=== PATIENT | female | born 1990 | race Caucasian/White ===

== ENCOUNTER → 2018-01-09 13:13 | Outpatient (CLI) | payer OTHER, MEDICAID, SELFPAY ==
--- NOTE | 2018-01-09 13:13 | DI.US.S_ITS ---
PROCEDURE: US PELVIC COMPLETE INDICATIONS: IUD PLACEMENT TECHNIQUE: Real-time scanning was performed of the pelvic organs, with image documentation. Additional endovaginal scanning was necessary due to incomplete visualization of the adnexal and endometrial structures by transabdominal scanning. COMPARISON: None. FINDINGS: Transabdominal scanning: Limited scanning through the kidneys shows no hydronephrosis. No pathologic free abdominal or pelvic fluid. Endovaginal scanning: Uterus: Uterus is normal in size at 10.0 x 4.4 x 5.6 cm. The endometrium measures 5.8 mm in combined thickness. Intrauterine device in expected position. Ovaries: Mildly thickwalled, irregular complex cyst involves the right ovary measuring 2.2 x 1.7 x 1.7 cm which contains fine low level internal echoes. IMPRESSION: 1. Intrauterine device in expected position. 2. Thick and irregular walled complex right ovarian cyst measuring up to 2.2 cm. Given the complexity, recommend short term follow pelvic ultrasound in 6-12 weeks to assess for resolution. Dictated by: Shekhar HERNANDEZ Interpreted: Olayinka Villaseñor MD on 01/09/2018 at 14:03 Approved by: Olayinka Villaseñor M.D. on 01/09/2018 at 14:42
== END ==
PROVIDERS: Visit Provider Obstetrics & Gynecology
DX: R10.9 Unspecified abdominal pain (principal); Z30.431 Encounter for routine checking of intrauterine contraceptive device; N83.201 Unspecified ovarian cyst, right side
CPT/HCPCS: 76830; 76856

== ENCOUNTER → 2019-02-14 11:26 | Outpatient (CLI) | payer OTHER, MEDICAID, SELFPAY ==
--- NOTE | 2019-02-14 11:29 | DI.RAD.S_ITS ---
PROCEDURE: XR FOOT LT MIN 3V INDICATIONS: Left foot pain x 3 weeks - no history of injury TECHNIQUE: 3 views of the foot were acquired. COMPARISON: None. FINDINGS: Bones: No fractures or dislocations. No suspicious bony lesions. Soft tissues: No tibiotalar joint effusion. Achilles tendon appears normal. IMPRESSION: No trauma found, source of pain without trauma is not identified. Dictated by: Manny Joe M.D. on 02/14/2019 at 17:39 Approved by: Manny Joe M.D. on 02/14/2019 at 17:40
== END ==
PROVIDERS: PCP Physician Assistant; Visit Provider Physician Assistant
DX: M79.672 Pain in left foot (principal)
CPT/HCPCS: 73630

== ENCOUNTER 2019-05-15 14:27 | Day surgery (SDC) | payer OTHER, MEDICAID, SELFPAY ==
[2019-05-11 14:06] VITALS: BMI 36.6
[2019-05-15] VITALS (9 sets, daily range): BP systolic 110–150; BP diastolic 59–82; PULSE 60–83; RESP 10–17; TEMP 36.3–37.1; O2SAT 95–99
--- NOTE | 2019-05-15 | PATH_ITS ---
[facility] Accession Number: [id number] . 01 Material submitted: . gallbladder - GALLBLADDER . 02 Diagnosis: Gallbladder, Cholecystectomy: Chronic cholecytitis, cholelithiasis, and cholesterolosis. One benign cystic duct lymph node (0/). MRV 05/17/2019 0949 Local . 02 Electronically signed: . Danay Sheth MD, Pathologist NPI- [id number] . 01 Gross description: . Received in formalin, labeled gallbladder, is an intact gallbladder (length-6.5 cm, diameter-2.5 cm) with castillo-pink smooth shiny serosa and a patent cystic duct. A lymph node (0.7 x 0.5 x 0.2 cm) is identified. The lumen contains green gelatinous bile and multiple green-yellow smooth friable calculi (6.2 x 2.5 x 1.2 cm in aggregate). The mucosa is green-troy smooth and flat. The wall is up to 0.1 cm thick. No nodules, masses or lesions are identified. Section code: (A1) cystic duct resection margin and two serial sections from the body; (A2) two longitudinal sections from the fundus; (A3) one intact lymph node. ([id number]) /MRV 05/16/2019 1053 Local . 02 Pathologist provided ICD-10: K80.60 . 02 CPT . 529974 Performed at: 01 [facility] [address] [id number] MD Gui Allen MD Phone: [phone] Performed at: 02 [facility] [address] [place], [place] [id number] Kulkarni MD Phone: [phone]
[2019-05-15] MEDS: LACTATED RINGERS 1,000 ML 100 ML IV (14:52)
--- NOTE | 2019-05-15 15:15 | PM.PREOP ---
Pre-operative Note Interval Note History & Physical reviewed/Exam performed by Physician: Yes Changes to H&P: No
--- NOTE | 2019-05-15 15:22 | SUR.OPER ---
Supine on padded OR bed, head on pillow, arms secured on padded arm boards at <90 degrees abduction, legs uncrossed, safety belt at thigh, tape over blanket over lower legs.
[2019-05-15] MEDS: CEFAZOLIN 2 GM/100 ML FROZ.PIGGY IV (15:55)
[2019-05-15] MEDS: BUPIVACAINE 0.5% (PF) VIAL 30 ML INJ (16:32)
--- NOTE | 2019-05-15 17:09 | PM.OP.1 ---
Operative Date/Time/Diagnoses Date of procedure: 05/15/19 Time of procedure: 17:09 Pre-op diagnosis: biliary colic Post-op diagnosis: same Procedure & Clinicians Procedure: Laparoscopic cholecystectomy Same procedure as scheduled: Yes Indications: 29-year-old female with biliary colic presents for elective cholecystectomy. Surgeon: Blayne Lloyd Click Yes if Unassisted: Yes Anesthesia Type: General Operative Notes Findings: Gallstones Specimen(s): other (Gallbladder) Estimated Blood Loss (mL): 15 Procedure in detail: The patient was brought to the operating room placed supine on the table. Bilateral lower extremity compression devices were applied. General anesthesia was induced and they were intubated with an endotracheal tube. They received 2g Ancef prior to skin incision. A time-out was performed to ensure the correct patient procedure necessary equipment within the operating room. They were then prepped and draped in the usual sterile fashion. Infraumbilical incision was made the umbilical stalk was grasped and elevated and the fascia was sharply incised. The abdomen was entered atraumatically. A 10 mm trocar was then placed into the abdomen. Pneumoperitoneum was established. The laparoscopic camera was inserted into the abdomen inspection was made that demonstrated no evidence of injury upon entry. We then placed our working ports the 1st 5 mm port high in the epigastrium and then 2 in the right upper quadrant. The gallbladder was grasped and retracted over the liver and grasped laterally by the fundus. The triangle of Calot was exposed. The triangle of calot was then skeletonized using hook electrocautery and demonstrated the cystic duct clearly entering the gallbladder the cystic artery and the liver and in the background. With the critical view of safety established the cystic duct was clipped twice proximally and once distally and then sharply divided and the cystic artery was taken in the same fashion. Next the gallbladder was removed from the liver bed using electro cautery. The liver bed was then inspected for hemostasis and this was achieved. The abdomen was irrigated with sterile saline and inspection was made that showed the clips in good position. The specimen was removed using Endo-Catch. The abdomen was desufflated. The the fascia of the umbilicus was closed with 0 Vicryl in a [id number] fashion. Skin incisions were irrigated and closed with 4-0 Monocryl. The wounds were sealed with Dermabond. Patient emerged from general anesthesia was extubated and transferred to the postoperative care unit missed stable condition. The sponge and instrument count at the end of the operation was correct. Complications: none Post-operative Condition: stable Disposition: same day surgery
[2019-05-15] MEDS: fentaNYL 100 MCG/2 ML INJ 50 MCG IV (17:28)
[2019-05-15] MEDS: OXYCODONE IR 5 MG TABLET PO (17:31)
== END 2019-05-15 18:23 | disposition home or self-care (01) ==
PROVIDERS: Family Provider Physician Assistant; PCP Physician Assistant; Visit Provider Surgery
PROC: 0FT44ZZ Resection of Gallbladder, Percutaneous Endoscopic Approach (ICD-10-PCS; CPT 47562; principal; 2019-05-15 15:45)
DX: K80.10 Calculus of gallbladder with chronic cholecystitis without obstruction (principal)
CPT/HCPCS: 47562; J0330; J0690; J1100; J1885; J2250; J2405; J2704; J3010

== ENCOUNTER → 2020-07-22 10:47 | Outpatient (CLI) | payer OTHER, MEDICAID, SELFPAY ==
[2020-07-22 11:31] LABS: Add Manual Diff / Slide Review NO; Basophils Absolute Auto 0 /uL (0-100); Basophils Percent Auto 0.5 % (0-2); Eosinophils Absolute Auto 100 /uL (0-450); Eosinophils Percent Auto 2.1 % (2-4); Hematocrit 42.6 % (36-46); Hemoglobin 14.3 g/dL (12.0-16.0); Lymphocytes Absolute Auto 1800 /uL (1100-4500); Mean Corpuscular HGB Conc 33.5 % (30-36); Mean Corpuscular Hemoglobin 30.9 PG (26-34); Mean Corpuscular Volume 92.2 fL (80-100); Monocytes Absolute Auto 500 /uL (0-900); Monocytes Percent Auto 7.5 % (3-14); Neutrophils Absolute Auto 3900 /uL (1500-7000); Neutrophils Percent Auto 61.9 % (50-75); Platelet Count 249 X10^3/uL (150-400); Red Blood Cell Count 4.62 X10^6/uL (4.0-5.2); Red Cell Distribution Width 12.6 % (11.6-14.8); White Blood Cell Count 6.3 X10^3/uL (4.5-11.0)
[2020-07-22 12:06] LABS: Alanine Aminotransferase 43 IU/L (<35); Albumin 4.3 g/dL (3.5-5.0); Albumin Globulin Ratio 1.4 (1.0-2.8); Alkaline Phosphatase 59 U/L (38-126); Aspartate Aminotransferase 32 IU/L (14-36); BUN Creatinine Ratio 15.6 (6-22); Bilirubin Total 0.3 mg/dL (0.2-1.3); Blood Urea Nitrogen 12 mg/dL (7-17); Calcium 9.3 mg/dL (8.4-10.2); Carbon Dioxide 28 mmol/L (22-32); Chloride 108 mmol/L (98-107); Estimated Glomerular Filt Rate > 60.0 mL/min (>60); Globulin 3.1 g/dL (1.7-4.1); Glucose 105 mg/dL (70-100); HEMOLYSIS < 15 (0-50); Potassium 4.2 mmol/L (3.4-5.1); Sodium 139 mmol/L (137-145); Total Protein 7.4 g/dL (6.3-8.2)
[2020-07-22 12:21] LABS: Free T3, Triiodothyronine Free 5.83 pg/mL (2.77-5.27); Free T4, Direct Thyroxine 0.99 ng/dL (0.78-2.19)
[2020-07-22 12:35] LABS: Thyroid Stimulating Hormone 0.892 uIU/mL (0.47-4.68)
== END ==
PROVIDERS: Family Provider Physician Assistant; PCP Nurse Practitioner; Referring Provider Nurse Practitioner; Visit Provider Nurse Practitioner
DX: Z00.00 Encounter for general adult medical examination without abnormal findings (principal); F32.9 Major depressive disorder, single episode, unspecified; F41.9 Anxiety disorder, unspecified
CPT/HCPCS: 36415; 80053; 84439; 84443; 84481; 85025

== ENCOUNTER → 2020-11-06 12:17 | Outpatient (CLI) | payer OTHER, MEDICAID, SELFPAY ==
--- NOTE | 2020-11-06 12:19 | DI.US.S_ITS ---
PROCEDURE: US ABDOMEN LIMITED INDICATIONS: abdominal mass at right of umbilicus TECHNIQUE: Real-time focused scanning was performed of the abdomen, with image documentation. COMPARISON: None. FINDINGS: At the right and left margins of the umbilicus there are discrete ovoid structures with an appearance consistent with lipoma, measuring 2.4 x 0.8 x 1.5 cm on the right and 2.4 x 1.4 x 1.4 cm on the left. IMPRESSION: Lipoma structures appear present on the right and left margins of the umbilicus. No bowel is seen. Continued clinical follow-up is recommended. No visceral herniation is seen. Dictated by: Manny Joe M.D. on 11/06/2020 at 13:21 Approved by: Manny Joe M.D. on 11/06/2020 at 13:22
== END ==
PROVIDERS: Family Provider Physician Assistant; PCP Nurse Practitioner; Referring Provider Nurse Practitioner; Visit Provider Nurse Practitioner
DX: D17.5 Benign lipomatous neoplasm of intra-abdominal organs (principal)
CPT/HCPCS: 76705

== ENCOUNTER → 2020-12-26 09:17 | Outpatient (CLI) | payer OTHER, MEDICAID, SELFPAY ==
[2020-12-26 10:22] LABS: COVID19 -Nasal RAPID Negative (Negative)
== END ==
PROVIDERS: Family Provider Physician Assistant; PCP Nurse Practitioner; Visit Provider Surgery
DX: Z20.822 Contact with and (suspected) exposure to COVID-19 (principal)
CPT/HCPCS: 87635; C9803

== ENCOUNTER 2020-12-29 06:34 | Day surgery (SDC) | payer OTHER, MEDICAID, SELFPAY ==
[2020-12-25 10:35] VITALS: BMI 38.0
[2020-12-29] VITALS (8 sets, daily range): BP systolic 107–137; BP diastolic 68–83; PULSE 70–110; RESP 13–21; TEMP 36.1–37.1; O2SAT 97–98; BMI 37.8
--- NOTE | 2020-12-29 | PATH_ITS ---
[facility] Accession Number: [id number] . 01 Material submitted: . hemorrhoids - HEMORRHOIDS . 01 Clinical history: . HEMORRHOIDECTOMY W/POSS INT LAT SPHINCTERECTOMY . 02 Diagnosis: Hemorrhoids, Biopsy: Consistent with hemorrhoidal tissue. Negative for dysplasia or malignancy. [facility] 12/31/2020 1339 Local . 02 Electronically signed: . Daysi Kulkarni MD, Pathologist NPI- [id number] . 01 Gross description: . The specimen is received in formalin, labeled hemorrhoids and consists of three troy to pink-purple mucosal tissue fragments ranging from 1.0-1.8 cm. The margins are inked blue. The specimen is entirely submitted. . A1-A3: tissue fragments, bisected. ([id number]) /MRV 12/30/2020 1414 Local . 02 Pathologist provided ICD-10: K64.9 . 02 CPT . 895549 Performed at: 01 [facility] [address], [place], [place] [id number] MD Gui Allen MD Phone: [phone] Performed at: 02 [facility] [address] [place], [place] [id number] MD Daysi Kulkarni MD Phone: [phone]
[2020-12-29] MEDS: LACTATED RINGERS 1,000 ML 100 ML IV (07:21)
--- NOTE | 2020-12-29 07:27 | PM.HP.1 ---
History of Present Illness History of Present Illness Date Patient Seen: 12/29/20 Time Patient Seen: 07:27 Chief complaint: HEMORRHOIDECTOMY W/POSS INT LAT SPHINCTERECTOMY Narrative: This is a 30-year-old woman who has had symptomatic hemorrhoids since giving 6 years ago. They intermittently cause her pain and they swell when she has any kind of upset stomach or change in her stools. She generally has very regular bowel movements, and does not have to sit on the toilet for more than 2 minutes to have a bowel movement. She denies any melena or hematochezia. She has difficulty keeping clean, and hemorrhoids cause her quite a bit of pain when they are swollen. She has not had any procedures done on them before. She was found to have posterior midline tenderness on rectal exam in the office, consistent with a possible fissure. She denies any new symptoms or concerns since her office visit. ROS: Positive for anxiety, depression. Thirteen system review is otherwise negative other than as mentioned below and in HPI. PE: GENERAL: Well groomed and cooperative. Appears stated age. Answers questions promptly and appropriately. Vital signs noted. HENT: Normocephalic, atraumatic. Hearing intact. EYES: Conjunctiva pink, sclera white, no periorbital swelling. CARDIOVASCULAR: Regular rate. No pedal edema. RESPIRATORY: Non-tachypneic, breathing comfortably on room air. GASTROINTESTINAL: Abdomen soft and non-distended GENITALURINARY: No flank tenderness. MUSCULOSKELETAL: Equal tone and mass bilaterally. SKIN: Warm, dry, soft, appropriate color for ethnicity. No other lesions, rashes, or wounds. NEURO: Alert and Oriented X 3. No gross sensory deficits, or cognitive issues. PSYCH: Appropriate affect and mood. Patient History Medical History Biliary colic Cellulitis Depression Dizziness E coli infection (1998) Elevated fasting glucose Elevated LFTs Epigastric pain Hemorrhoids Left foot pain Neuritis Otitis externa Psoriasis Right otitis media Skin mole Skin tags, multiple acquired Umbilical mass Surgical History History of laparoscopic cholecystectomy (05/15/19) Status post delivery (12/06/16) Status post repeat low transverse section Family & Social History Family History Mother Thyroid disorder Grandmother Thyroid disorder Grandmother Stroke Father Hypertension Social History: household members children,none Tobacco & Substance use: Smoking Status Never smoker alcohol intake current alcohol intake frequency holiday/special occasion Substance Use Type marijuana Meds Home Medications and Allergies Home Medications Medication Instructions Recorded Confirmed Type levonorgestrel 20 mcg/24 hours (6 1 device INTRAUTERINE CONT 09/12/19 12/25/20 History yrs) 52 mg intrauterine device Allergies Allergy/AdvReac Type Severity Reaction Status Date / Time citalopram AdvReac Intermediate Memory Verified 12/29/20 06:59 loss, hot flashes Exam Vital Signs (past 8 hours): - 12/29/20 07:00 Temperature 98.8 F Pulse Rate 78 Respiratory Rate 16 Blood Pressure 137/83 Pulse Oximetry 97 Oxygen Delivery Method Room Air Assessment & Plan Assessment and plan (1) Obesity (BMI 30.0-34.9): Status: Chronic (2) Hemorrhoids: Qualifiers: Hemorrhoid type: unspecified Qualified Code(s): K64.9 - Unspecified hemorrhoids Status: Acute (3) Anal pain: Status: Acute Assessment & Plan narrative: This is a 30-year-old woman with hemorrhoids and an anal fissure. Risks and benefits of hemorrhoidectomy and internal lateral sphincterotomy were discussed with the patient including risk of bleeding, infection, damage to nearby structures, anal leakage, anal stenosis, recurrence of hemorrhoids, recurrence of fissure, chronic pain, postoperative constipation, need for additional procedures. The patient desires to proceed with hemorrhoidectomy and internal lateral sphincterotomy. COVID-19 COVID-19 status: Negative Result date/Date tested (Pos, Neg/Pending): 12/26/20 Time Spent With Patient Time with patient: 15-24 minutes Quality VTE Deep Vein Thrombosis/Pulmonary Embolism Present on Admission: No
[2020-12-29] MEDS: metroNIDAZOLE 500 MG/100 ML PIGGYBACK 100 MG IV (07:50)
[2020-12-29] MEDS: CEFAZOLIN 1 GM VIAL 2 GM IV (08:00)
--- NOTE | 2020-12-29 08:12 | SUR.OPER ---
Prone on padded OR bed, head in foam head support, gel chest rolls, gel pad under knees, pillow x2 under lower legs, toes free of pressure, arms secured on padded arm boards at <90 degrees abduction. Safety belt at back.
[2020-12-29] MEDS: BUPIVACAINE 0.25% W/ EPI (PF) 10 ML VIAL 60 ML INJ (08:20)
[2020-12-29] MEDS: BUPIVACAINE LIPOSOME 266 MG/20 ML VIAL INJ (08:22)
[2020-12-29] MEDS: DIBUCAINE 1% OINT 28 GM 1 APPLIC TOP (08:23)
--- NOTE | 2020-12-29 09:11 | P.OP_ITS ---
Operative Date/Time/Diagnoses Date of procedure: 12/29/20 Time of procedure: 09:12 Pre-op diagnosis: hemorrhoids, posterior midline anal fissure Post-op diagnosis: same (Extensive circumferential hemorrhoids; posterior midline anal fissure) Procedure & Clinicians Procedure: Hemorrhoidectomy in suture ligation of left lateral and right anterior hemorrhoidal columns, suture ligation of pedicle of right posterior h emorrhoidal column Right Internal lateral sphincterotomy Same procedure as scheduled: Yes Indications: Circumferential hemorrhoids, posterior midline anal fissure Surgeon: Jazmin Castillo Click Yes if Unassisted: Yes Anesthesia Type: General Operative Notes Findings: Circumferential internal and external hemorrhoids, posterior midline fissure Specimen(s): other (hemorrhoids) Estimated Blood Loss (mL): 5 Procedure in detail: The patient was brought into the OR. Sequential compression devices were placed on both legs and turned on. Appropriate perioperative antibiotics were given. General anesthesia was induced and the patient was intubated. The patient was turned prone onto the OR table. All bony prominences were padded. The buttocks were taped apart. The perianal area was prepped and draped in sterile fashion with betadine prep. Surgical timeout was conducted. 0.25% Marcaine with epi was used to perform a four quadrant anal block using 5mL per quadrant for a total of 20mL. On external exam there were moderate external hemorrhoids seen and a chronic posterior midline fissure. With copious lubricant, an anorectal exam was performed. Large internal hemorrhoids were seen circumferentially. The left lateral internal hemorrhoid was grasped proximal to the dentate line and an 0 Vicryl suture was placed in the base of the hemorrhoidal vessel and secured. The hemorrhoid was divided using harmonic scalpel and dissected out including the involved vessel, excising the internal and external hemorrhoidal column. The hemorrhoidal tissue was excised with good hemostasis. The same was again performed at the right anterior hemorrhoidal column. The base of the right posterior hemorrhoidal column was sutured with 0 Vicryl without removing the hemorrhoidal column to reduce the risk of circumferential scarrinng and stenosis. Attention was then turned to the right lateral anoderm at the 3:00 position. A small skin incision was made overlying the anal sphincter muscle. The skin was opened and dissection was carried down to the anal sphincter using a mosquito cl amp. The internal sphincter was located and 3mm of muscle was divided using cautery, consistent with the length of the fissure. The anoderm was closed with deep 3-0 Vicryl suture. An additional 20 mL of 0.25% Marcaine with epi was used to inject circumferentially around the anal canal. 20mL of Exparel was used to inject the anoderm and anal canal circumferentially 2-3mL per cm. A large Gelfoam was then coated and rolled with Dibucaine and placed in the anal canal. A thick layer of Dibucaine was used to coat the anoderm. A stack of 4x4 gauze was then used to cover the anal opening and secured in place with medipore tape. The patient was transferred onto her hospital bed into supine position. She was then awakened from anesthesia and extubated. Needle, sponge, and instrument counts were correct x 2. The patient was transferred to the PACU in stable condition. Complications: none Post-operative Condition: stable Disposition: PACU
[2020-12-29] MEDS: OXYCODONE IR 5 MG TABLET PO (09:15)
--- NOTE | 2020-12-29 09:59 | SUR.PHASEII ---
Patient does not have a bath tub at home -- sitz bath given. patient denies having any questions, states that she has all of her belongings. Stable, pleasant, and appreciative.
== END 2020-12-29 09:59 | disposition home or self-care (01) ==
PROVIDERS: Family Provider Physician Assistant; PCP Nurse Practitioner; Referring Provider Nurse Practitioner; Visit Provider Surgery
PROC: (CPT 46260; principal; 2020-12-29 07:45)
DX: K64.8 Other hemorrhoids (principal); K60.1 Chronic anal fissure; K64.4 Residual hemorrhoidal skin tags; E66.9 Obesity, unspecified; Z68.37 Body mass index [BMI] 37.0-37.9, adult
CPT/HCPCS: 46260; 81025; C9290; J0330; J0690; J1100; J2250; J2405; J2704; J3010

== ENCOUNTER 2021-07-27 15:18 | Emergency (ER) | payer OTHER, MEDICAID, SELFPAY ==
[2021-07-27 15:34] VITALS: BP 138/100; PULSE 74; RESP 18; TEMP 37.1; O2SAT 97; BMI 42.4
== END 2021-07-27 17:19 | disposition left against medical advice (07) ==
PROVIDERS: Emergency Provider Emergency Medicine; Family Provider Physician Assistant; PCP Nurse Practitioner
DX: Z53.21 Procedure and treatment not carried out due to patient leaving prior to being seen by health care provider (principal)
CPT/HCPCS: 99281

== ENCOUNTER → 2022-04-08 08:05 | Outpatient (CLI) | payer OTHER, MEDICAID, SELFPAY ==
[2022-04-08 10:26] LABS: Add Manual Diff / Slide Review NO; Basophils Absolute Auto 100 /uL (0-100); Basophils Percent Auto 0.7 % (0-2); Eosinophils Absolute Auto 200 /uL (0-450); Eosinophils Percent Auto 2.7 % (2-4); Hematocrit 39.7 % (36-46); Hemoglobin 13.8 g/dL (12.0-16.0); Lymphocytes Absolute Auto 2200 /uL (1100-4500); Mean Corpuscular HGB Conc 34.8 % (30-36); Mean Corpuscular Hemoglobin 31.2 PG (26-34); Mean Corpuscular Volume 89.6 fL (80-100); Monocytes Absolute Auto 600 /uL (0-900); Monocytes Percent Auto 8.2 % (3-14); Neutrophils Absolute Auto 4700 /uL (1500-7000); Neutrophils Percent Auto 60.4 % (50-75); Platelet Count 271 X10^3/uL (150-400); Red Blood Cell Count 4.43 X10^6/uL (4.0-5.2); Red Cell Distribution Width 12.6 % (11.6-14.8); White Blood Cell Count 7.8 X10^3/uL (4.5-11.0)
[2022-04-08 11:20] LABS: Alanine Aminotransferase 22 IU/L (<35); Albumin Globulin Ratio 1.7 (1.0-2.8); Alkaline Phosphatase 68 U/L (38-126); Aspartate Aminotransferase 21 IU/L (14-36); BUN Creatinine Ratio 12.7 (6-22); Bilirubin Total 0.2 mg/dL (0.2-1.3); Blood Urea Nitrogen 9 mg/dL (7-17); Calcium 8.9 mg/dL (8.4-10.2); Carbon Dioxide 22 mmol/L (22-32); Chloride 104 mmol/L (98-107); Cholesterol 239 mg/dL (140-199); Estimated Glomerular Filt Rate > 60 mL/min (>60); Globulin 2.3 g/dL (1.7-4.1); Glucose 110 mg/dL (70-100); HDL Cholesterol 44 mg/dL (40-60); HEMOLYSIS < 15 (0-50); LDL Cholesterol Calculated 173 mg/dL (<100); Potassium 4.3 mmol/L (3.4-5.1); Total Protein 6.3 g/dL (6.3-8.2); Triglycerides 111 mg/dL (35-150)
[2022-04-08 11:27] LABS: Free T3, Triiodothyronine Free 3.71 pg/mL (2.77-5.27); Free T4, Direct Thyroxine 0.93 ng/dL (0.78-2.19)
[2022-04-08 11:30] LABS: Sodium 138 mmol/L (137-145)
[2022-04-08 11:41] LABS: Thyroid Stimulating Hormone 1.21 uIU/mL (0.47-4.68)
== END ==
PROVIDERS: Family Provider Physician Assistant; PCP Nurse Practitioner; Referring Provider Nurse Practitioner; Visit Provider Nurse Practitioner
DX: Z00.00 Encounter for general adult medical examination without abnormal findings (principal)
CPT/HCPCS: 36415; 80053; 80061; 84439; 84443; 84481; 85025

== ENCOUNTER → 2022-10-04 08:40 | Outpatient (CLI) | payer OTHER, MEDICAID, SELFPAY ==
--- NOTE | 2022-10-04 08:41 | DI.US.S_ITS ---
PROCEDURE: US PELVIC COMPLETE INDICATIONS: LEFT OVARIAN CYST/PAIN TECHNIQUE: Real-time transvaginal scanning was performed of the pelvic organs, with image documentation. COMPARISON: [facility], US, US PELVIC COMPLETE, 01/09/2018, 13:33. FINDINGS: Uterus: Uterus is anteverted and normal in size at 8.6 x 4.1 x 5.1 cm. The myometrium is homogeneous. The endometrium measures 3 mm combined thickness. Ovaries: The right ovary measures 3.4 x 2.4 x 2.6 cm, with a calculated ovarian volume of 11 cc. The left ovary measures 2.9 x 1.9 x 3.0 cm, with a calculated ovarian volume of 9 cc. Greater than 12 follicles can be seen in each ovary. No adnexal masses are seen. Blood flow present within both ovaries on Doppler imaging. Other: No pathologic free abdominal or pelvic fluid. IMPRESSION: Greater than 12 follicles visualized in each ovary, a finding that can be seen in the setting of polycystic ovarian morphology. We strive to produce accurate, complete, and clear reports of imaging services. To assist us in improving patient care, this report was composed using standard report templates and voice recognition software. Therefore, it may contain abnormal punctuation, insertions and/or omissions. Occasional wrong-word or sound-alike substitutions may occur. Though we review the report and make efforts to correct it, we do recommend that the report be read carefully in proper context to recognize any text inaccuracies. Dictated by: Tariq Navarrete M.D. on 10/04/2022 at 9:48 Approved by: Tariq Navarrete M.D. on 10/04/2022 at 9:57
== END ==
PROVIDERS: Family Provider Physician Assistant; PCP Nurse Practitioner; Referring Provider Obstetrics & Gynecology; Visit Provider Obstetrics & Gynecology
DX: N83.202 Unspecified ovarian cyst, left side (principal); R10.2 Pelvic and perineal pain
CPT/HCPCS: 76830; 76856; 93976

== ENCOUNTER 2024-02-14 06:00 | Day surgery (SDC) | payer BC, SELFPAY ==
[2024-02-08 13:46] VITALS: BMI 37.9
[2024-02-14 06:35] VITALS: BMI 37.9
[2024-02-14 06:38] VITALS: BP 124/83; PULSE 72; RESP 18; TEMP 36.6; O2SAT 96
[2024-02-14] MEDS: LACTATED RINGERS 1,000 ML 42 ML IV (06:47)
--- NOTE | 2024-02-14 07:42 | PM.HP.1 ---
History of Present Illness History of Present Illness Date Patient Seen: 02/14/24 Time Patient Seen: 07:42 Chief complaint: Open umbilical hernia repair w/mesh Narrative: Kaylie is a 33 year old woman with an umbilical hernia. See office note for details. [facility] Medical History Class 2 obesity due to excess calories with body mass index (BMI) of 39.0 to 39.9 in adult Difficulty concentrating Anal fissure Anal pain Elevated LFTs Elevated fasting glucose Dizziness Skin mole Skin tags, multiple acquired Umbilical mass Cellulitis Hemorrhoids Otitis externa Right otitis media Psoriasis Depression Biliary colic Neuritis Left foot pain Epigastric pain E coli infection (1998) Surgical History (Updated 02/08/24 @ 13:45 by Arlet Avendaño RN) Hx of hemorrhoidectomy (12/29/20) History of laparoscopic cholecystectomy (05/15/19) Status post delivery (12/06/16) Status post repeat low transverse section Family History Mother Thyroid disorder Grandmother Thyroid disorder Grandmother Stroke Father Hypertension Social History marital status: unknown household members: spouse and children occupational status: employed Smoking Status: Never smoker second hand exposure: No alcohol intake: current substance use type: does not use Meds Home Medications and Allergies Home Medications Medication Instructions Recorded Confirmed Type fluoxetine 20 mg capsule See Rx Instructions .Route 11/25/23 02/14/24 Rx .COMPLEX #90 caps methylphenidate HCl 36 mg 36 mg PO QAM #30 tabs 12/05/23 02/14/24 Rx tablet,extended release 24 hr Allergies Allergy/AdvReac Type Severity Reaction Status Date / Time citalopram AdvReac Intermediate Memory Verified 02/14/24 06:33 loss, hot flashes Exam Vital Signs (past 8 hours): - 02/14/24 06:38 Temperature 97.9 F Pulse Rate 72 Respiratory Rate 18 Blood Pressure 124/83 Pulse Oximetry 96 Oxygen Delivery Method Room Air Oxygen Delivery Method Room Air Const General: No acute distress Resp Effort & Inspection: normal respiratory effort Assessment & Plan Assessment and plan (1) Umbilical hernia: Qualifiers: Obstruction and gangrene presence: without obstruction or gangrene Qualified Code(s): K42.9 - Umbilical hernia without obstruction or gangrene Status: Acute Plan Proceed with umbilical hernia repair with mesh Time-Based Coding :: [TOTAL MINUTES] spent with patient and on the chart (including review of chart, obtaining history, exam, reviewing outside data, placing orders, documenting exam and treatment plan, and counseling patient) on [DATE].
[2024-02-14] MEDS: CEFAZOLIN 2 GM/100 ML PREMIX 100 ML IV (07:55)
--- NOTE | 2024-02-14 08:02 | SUR.OPER ---
Supine on padded OR bed, head on pillow, arms secured on padded arm boards at <90 degrees abduction, legs uncrossed, safety belt at thigh, tape over blanket over lower legs.
[2024-02-14] MEDS: BUPIVACAINE 0.5% (PF) 30 ML, EPINEPHrine 0.15 MG INJ (08:07)
--- NOTE | 2024-02-14 08:34 | PM.OP.1 ---
Operative Date/Time/Diagnoses Date of procedure: 02/14/24 Time of procedure: 08:34 Pre-op diagnosis: Umbilical hernia Post-op diagnosis: same Procedure & Clinicians Procedure: Open umbilical hernia repair with mesh Same procedure as scheduled: Yes Surgeon: Trenton Torres [employer] Commissioner: Eugene Henson Anesthesia Type: General Operative Notes Procedure in detail: Ancef was administered. The patient was brought to the operating room, placed on the table in the supine position and general endotracheal anesthesia was induced. The abdomen was prepped and draped in the usual fashion. A time-out was performed. A 6 cm curvilinear incision was made inferior to the umbilicus. Dissection around the base of the umbilical stalk allowed Peon clamp to be inserted around the stalk and the stalk was divided. The hernia sac was dissected free from the surrounding subcutaneous adipose tissue. The sac was dissected off the umbilical stalk using a combination of cautery, sharp and blunt dissection. The hernia sac was dissected free from the dermis and amputated. There was some visceral fat in the hernia that was amputated and discarded. The fascia was then closed transversely with four interrupted 0 Ethibond sutures. The subcutaneous adipose tissue was cleared off of the anterior sheath circumferentially about 2 cm in each direction. A piece of polypropylene mesh was trimmed to fit over the fascial closure and secured with Tisseel. Once the Tisseel was dried the umbilical skin was tacked down to the deep adipose tissue with a single 3-0 Vicryl stitch. The skin was closed with multiple interrupted 3-0 Vicryl dermal sutures followed by a running 4 Monocryl subcuticular closure. Steri-Strips were applied and an abdominal binder was applied. EBL: 5 mL Eugene SIMON provided assistance with exposure, retraction and closure of incisions. Post-operative Condition: stable Disposition: PACU
[2024-02-14 08:40] VITALS: BP 115/79; PULSE 81; RESP 14; TEMP 36.4; O2SAT 98
[2024-02-14 08:44] VITALS: BP 118/87; PULSE 80; RESP 17; O2SAT 98
[2024-02-14 08:49] VITALS: BP 116/71; PULSE 68; RESP 14; O2SAT 97
[2024-02-14] MEDS: OXYCODONE IR 5 MG TABLET PO (08:57)
[2024-02-14] MEDS: ONDANSETRON 4 MG/2 ML INJ IV (08:57)
[2024-02-14 09:00] VITALS: BP 119/77; PULSE 58; RESP 22; O2SAT 94
[2024-02-14 09:06] VITALS: BP 136/71; PULSE 72; RESP 12; O2SAT 98
== END 2024-02-14 09:59 | disposition home or self-care (01) ==
PROVIDERS: Family Provider Physician Assistant; PCP Nurse Practitioner; Referring Provider Surgery; Visit Provider Surgery
PROC: (CPT 49591; principal; 2024-02-14 07:45)
DX: K42.9 Umbilical hernia without obstruction or gangrene (principal)
CPT/HCPCS: 49591; 81025; J0171; J0690; J1100; J1885; J2250; J2405; J2704; J3010

== ENCOUNTER 2024-05-28 14:24 | Emergency (ER) | payer BC, SELFPAY ==
[2024-05-28 14:41] VITALS: BP 139/86; PULSE 116; RESP 16; TEMP 37.1; O2SAT 98; BMI 36.0
[2024-05-28 16:32] LABS: Add Manual Diff / Slide Review NO; Basophils Absolute Auto 0 /uL (0-100); Basophils Percent Auto 0.5 % (0-2); Eosinophils Absolute Auto 100 /uL (0-450); Eosinophils Percent Auto 0.8 % (2-4); Hematocrit 40.8 % (36-46); Hemoglobin 14.1 g/dL (12.0-16.0); Lymphocytes Absolute Auto 1800 /uL (1100-4500); Lymphocytes Percent Auto 19.1 % (25-40); Mean Corpuscular HGB Conc 34.5 % (30-36); Mean Corpuscular Hemoglobin 31.8 PG (26-34); Mean Corpuscular Volume 92.2 fL (80-100); Monocytes Absolute Auto 600 /uL (0-900); Monocytes Percent Auto 6.5 % (3-14); Neutrophils Absolute Auto 6900 /uL (1500-7000); Neutrophils Percent Auto 73.1 % (50-75); Platelet Count 280 X10^3/uL (150-400); Red Blood Cell Count 4.42 X10^6/uL (4.0-5.2); Red Cell Distribution Width 12.7 % (11.6-14.8); White Blood Cell Count 9.4 X10^3/uL (4.5-11.0)
[2024-05-28 16:39] LABS: Prothrombin Time 11.4 SECONDS (9.4-12.5)
[2024-05-28 16:42] LABS: PTT Partial Thromboplastin Tim 38 SECONDS (25.1-36.5)
[2024-05-28 16:58] LABS: Alanine Aminotransferase 22 IU/L (<35); Albumin 4.7 g/dL (3.5-5.0); Albumin Globulin Ratio 1.6 (1.0-2.8); Alkaline Phosphatase 62 U/L (38-126); Aspartate Aminotransferase 26 IU/L (14-36); BUN Creatinine Ratio 16.9 (6-22); Bilirubin Total 0.4 mg/dL (0.2-1.3); Blood Urea Nitrogen 14 mg/dL (7-17); Calcium 9.8 mg/dL (8.4-10.2); Carbon Dioxide 25 mmol/L (22-32); Chloride 103 mmol/L (98-107); Estimated Glomerular Filt Rate > 60 mL/min (>60); Globulin 2.9 g/dL (1.7-4.1); Glucose 93 mg/dL (70-100); HEMOLYSIS < 15 (0-50); Potassium 4.1 mmol/L (3.4-5.1); Sodium 135 mmol/L (137-145); Total Protein 7.6 g/dL (6.3-8.2)
[2024-05-28 18:16] VITALS: BP 144/94; PULSE 87; O2SAT 97
[2024-05-28 18:30] VITALS: BP 126/79; PULSE 74; O2SAT 97
--- NOTE | 2024-05-28 18:38 | ED_ITS ---
HPI - GI Bleed General Chief complaint: GI Bleed Stated complaint: bloody stool w/ red blood clots Time Seen by Provider: 05/28/24 18:10 Source: patient Mode of arrival: Family Vehicle History of Present Illness HPI Narrative: Patient is a 34-year-old female who is here for evaluation of several weeks of bright red blood per rectum. No recent travel. No recent antibiotics. No vomiting. Not on blood thinners. She was not having issues with constipation or diarrhea. No urinary symptoms. She has had a hemorrhoidectomy in the past. Reports no discomfort with bowel movements or urinating. No lightheadedness or shortness of breath with exertion. She stated that she tried to contact her primary doctor's office for a appointment however was directed to come to the emergency department for further evaluation. Related Data Previous Rx's Medication Instructions Recorded fluoxetine 20 mg capsule See Rx Instructions .Route 02/29/24 .COMPLEX #90 caps vitamins with calcium 1 tab PO DAILY #90 tabs 02/29/24 no.72-iron 29 mg-folic acid 1 mg tablet methylphenidate HCl 36 mg 36 mg PO QAM #30 tabs 04/05/24 tablet,extended release 24 hr Allergies Allergy/AdvReac Type Severity Reaction Status Date / Time citalopram AdvReac Intermediate Memory Verified 02/27/24 09:41 loss, hot flashes Review of Systems Review of Systems ROS Unobtainable: All systems reviewed & are unremarkable except as noted in HPI and below Patient History Medical History Class 2 obesity due to excess calories with body mass index (BMI) of 39.0 to 39.9 in adult Difficulty concentrating Anal fissure Anal pain Elevated LFTs Elevated fasting glucose Dizziness Skin mole Skin tags, multiple acquired Umbilical mass Cellulitis Hemorrhoids Otitis externa Right otitis media Psoriasis Depression Biliary colic Neuritis Left foot pain Epigastric pain E coli infection (1998) Surgical History (Updated 02/29/24 @ 09:25 by CHI Sosa) History of hernia repair Hx of hemorrhoidectomy (12/29/20) History of laparoscopic cholecystectomy (05/15/19) Status post delivery (12/06/16) Status post repeat low transverse section Family History Mother Thyroid disorder Grandmother Thyroid disorder Grandmother Stroke Father Hypertension Social History marital status: unknown household members: spouse and children occupational status: employed Smoking Status: Never smoker second hand exposure: No alcohol intake: current substance use type: does not use Smoking Status: Never smoker alcohol intake frequency: a few times a month Substance Use Type: marijuana Exam Initial Vital Signs Initial Vital Signs: Vital Signs Temperature 98.8 F 05/28/24 14:41 Pulse Rate 116 H 05/28/24 14:41 Respiratory Rate 16 05/28/24 14:41 Blood Pressure 139/86 05/28/24 14:41 Pulse Oximetry 98 05/28/24 14:41 Oxygen Delivery Method Room Air 05/28/24 14:41 Const General: cooperative, comfortable and No ill appearing HENMT Head: normal to inspection and normocephalic Resp Effort & Inspection: normal respiratory effort Cardio Rate: regular rate GI Inspection: non-distended Skin General: no rashes or lesions noted Neuro General: patient alert, patient awake and moves all extremities Course Orders Ordered: ED Orders 05/28/24 16:20 Complete Blood Count AUTO DIFF Stat Comprehensive Metabolic Panel Stat PTT Partial Thromboplastin Rene Stat Prothrombin Time INR Stat 05/28/24 19:18 Hemoglobin and Hematocrit Stat Discontinued Medications Ondansetron HCl (Ondansetron 4 Mg/2 Ml Inj) 4 mg IV NOW PRN PRN Reason: Nausea And Vomiting Ondansetron HCl (Ondansetron 4 Mg Odt) 4 mg SL NOW PRN PRN Reason: Nausea And Vomiting Pantoprazole Sodium (Pantoprazole 40 Mg Vial) 80 mg IV NOW ONE Stop: 05/28/24 15:01 Last Admin: 05/28/24 18:32 Dose: Not Given Documented By: ES Vital Signs Vital signs: Vital Signs - 8 hr 05/28/24 18:16 05/28/24 18:16 05/28/24 18:30 Pulse Rate 87 Respiratory Rate Blood Pressure 144/94 H 126/79 Pulse Oximetry 97 Oxygen Delivery Method 05/28/24 18:30 05/28/24 19:00 05/28/24 19:00 Pulse Rate 74 79 Respiratory Rate Blood Pressure 128/85 Pulse Oximetry 97 97 Oxygen Delivery Method 05/28/24 19:30 05/28/24 19:30 Pulse Rate 77 Respiratory Rate 18 Blood Pressure 129/87 Pulse Oximetry 98 Oxygen Delivery Method Room Air MDM - GI Bleed Lab Data Attestation: I reviewed the patient's lab results. 05/28/24 19:18 05/28/24 16:20 Labs: Lab Results 05/28/24 05/28/24 05/28/24 Range/Units 16:20 19:18 Unknown WBC 9.4 (4.5-11.0) X10^3/uL RBC 4.42 (4.0-5.2) X10^6/uL Hgb 14.1 13.3 (12.0-16.0) g/dL Hct 40.8 39.0 (36-46) % MCV 92.2 (80-100) fL MCH 31.8 (26-34) PG MCHC 34.5 (30-36) % RDW 12.7 (11.6-14.8) % Plt Count 280 (150-400) X10^3/uL Neut % (Auto) 73.1 (50-75) % Lymph % (Auto) 19.1 L (25-40) % Emanuel % (Auto) 6.5 (3-14) % Eos % (Auto) 0.8 L (2-4) % Baso % (Auto) 0.5 (0-2) % Neut # (Auto) 6900 (7941-5500) /uL Lymph # (Auto) 1800 (3638-1892) /uL Emanuel # (Auto) 600 (0-900) /uL Eos # (Auto) 100 (0-450) /uL Baso # (Auto) 0 (0-100) /uL PT 11.4 (9.4-12.5) SECONDS INR 1.0 (0.9-1.3) APTT 38 H (25.1-36.5) SECONDS Sodium 135 L (137-145) mmol/L Potassium 4.1 (3.4-5.1) mmol/L Chloride 103 (98-107) mmol/L Carbon Dioxide 25 (22-32) mmol/L BUN 14 (7-17) mg/dL Creatinine 0.83 (0.52-1.04) mg/dL Estimated GFR > 60 (>60) mL/min BUN/Creatinine Ratio 16.9 (6-22) Glucose 93 (70-100) mg/dL Calcium 9.8 (8.4-10.2) mg/dL Total Bilirubin 0.4 (0.2-1.3) mg/dL AST 26 (14-36) IU/L ALT 22 (<35) IU/L Alkaline Phosphatase 62 (38-126) U/L Total Protein 7.6 (6.3-8.2) g/dL Albumin 4.7 (3.5-5.0) g/dL Globulin 2.9 (1.7-4.1) g/dL Albumin/Globulin Ratio 1.6 (1.0-2.8) Blood Type Cancelled Antibody Screen Cancelled Point of Care Testing Test Results Negative Urine Dip Bedside Urine Glucose Negative Bedside Urine Bilirubin - Negative Bedside Urine Ketone - Negative Urine Specific Barney 1.015 Bedside Urine Occult Blood - Negative Bedside Urine pH 6.0 Bedside Urine Protein - Negative Bedside Urine Urobilinogen - Negative Bedside Urine Nitrite - Negative Bedside Urine Leukocytes - Negative Esterase MDM Narrative Medical decision making narrative: Patient has had symptoms for the past several weeks. She was not tachycardic. Not hypotensive. H&H is unchanged here in the ER. Has a benign exam. Recommended that she contact her primary doctor for a follow-up. Also recommend that she talk to her primary doctor about a referral to go see general surgery to discuss potential further testing. She was given return precautions and follow-up instructions. She expressed understanding and agreement with plan. Discharge Plan Departure Patient Disposition: Home Clinical Impression: Painless rectal bleeding Instructions: Gastrointestinal Bleeding Activity Restrictions/Additional Instructions: Continue to take all of your medications as directed. Tomorrow contact your primary care doctor for a follow-up. You were going to need follow-up with general surgery to discuss further evaluation. Return to the emergency department for new symptoms. Prescriptions: No Action methylphenidate HCl 36 mg tablet extended release 24hr 36 mg PO QAM Qty: 30 0RF fluoxetine 20 mg capsule See Rx Instructions .ROUTE .COMPLEX Qty: 90 3RF Dose Instruction: TAKE ONE CAPSULE BY MOUTH EVERY MORNING Rx Instructions: TAKE ONE CAPSULE BY MOUTH EVERY MORNING PNV,calcium 72-iron,carb-folic 29 mg iron- 1 mg tablet 1 tab PO DAILY Qty: 90 3RF Rx Instructions: Take 1 tab by mouth daily for desired Referrals: Maggie Lara ARNP [Primary Care Provider] - Trenton Torres MD [Physician] - Stand Alone Forms: Patient Portal/API/Survey
[2024-05-28 19:00] VITALS: BP 128/85; PULSE 79; O2SAT 97
[2024-05-28 19:23] LABS: Hemoglobin 13.3 g/dL (12.0-16.0)
[2024-05-28 19:30] VITALS: BP 129/87; PULSE 77; RESP 18; O2SAT 98
== END 2024-05-28 19:37 | disposition home or self-care (01) ==
PROVIDERS: Emergency Medicine; Emergency Provider Emergency Medicine; Family Provider Physician Assistant; PCP Nurse Practitioner
DX: K62.5 Hemorrhage of anus and rectum (principal)
CPT/HCPCS: 36415; 80053; 81003; 81025; 85014; 85018; 85025; 85610; 85730; 99283; 99284

== ENCOUNTER → 2024-07-30 09:11 | Outpatient (CLI) | payer BC, SELFPAY ==
[2024-07-30 10:28] LABS: Add Manual Diff / Slide Review NO; Basophils Absolute Auto 100 /uL (0-100); Basophils Percent Auto 0.7 % (0-2); Eosinophils Absolute Auto 200 /uL (0-450); Eosinophils Percent Auto 3.1 % (2-4); Hematocrit 40.6 % (36-46); Hemoglobin 13.8 g/dL (12.0-16.0); Lymphocytes Absolute Auto 1700 /uL (1100-4500); Lymphocytes Percent Auto 22.2 % (25-40); Mean Corpuscular Hemoglobin 31.2 PG (26-34); Mean Corpuscular Volume 91.9 fL (80-100); Monocytes Absolute Auto 500 /uL (0-900); Monocytes Percent Auto 6.2 % (3-14); Neutrophils Absolute Auto 5200 /uL (1500-7000); Neutrophils Percent Auto 67.8 % (50-75); Platelet Count 272 X10^3/uL (150-400); Red Blood Cell Count 4.42 X10^6/uL (4.0-5.2); Red Cell Distribution Width 12.4 % (11.6-14.8); White Blood Cell Count 7.6 X10^3/uL (4.5-11.0)
[2024-07-30 10:48] LABS: Alanine Aminotransferase 21 IU/L (<35); Albumin 4.1 g/dL (3.5-5.0); Albumin Globulin Ratio 1.7 (1.0-2.8); Alkaline Phosphatase 58 U/L (38-126); Aspartate Aminotransferase 25 IU/L (14-36); BUN Creatinine Ratio 17.4 (6-22); Bilirubin Total 0.3 mg/dL (0.2-1.3); Blood Urea Nitrogen 15 mg/dL (7-17); Calcium 9.2 mg/dL (8.4-10.2); Carbon Dioxide 24 mmol/L (22-32); Chloride 107 mmol/L (98-107); Cholesterol 246 mg/dL (140-199); Estimated Glomerular Filt Rate > 60 mL/min (>60); Globulin 2.4 g/dL (1.7-4.1); Glucose 95 mg/dL (70-100); HDL Cholesterol 49 mg/dL (40-60); HEMOLYSIS < 15 (0-50); LDL Cholesterol Calculated 174 mg/dL (<100); Potassium 4.4 mmol/L (3.4-5.1); Sodium 137 mmol/L (137-145); Total Protein 6.5 g/dL (6.3-8.2); Triglycerides 117 mg/dL (35-150)
[2024-07-30 11:00] LABS: Creatinine Urine Random 111.71 mg/dL
[2024-07-30 11:04] LABS: Free T3, Triiodothyronine Free 3.93 pg/mL (2.77-5.27); Free T4, Direct Thyroxine 0.98 ng/dL (0.78-2.19)
[2024-07-30 11:06] LABS: Microalbumin Urine Random 1.3 mg/dL (0-1.6)
[2024-07-30 11:17] LABS: Thyroid Stimulating Hormone 0.983 uIU/mL (0.47-4.68)
== END ==
LOC: LAB 09:12
PROVIDERS: Family Provider Physician Assistant; PCP Family Medicine; Referring Provider Family Medicine; Visit Provider Family Medicine
DX: Z00.00 Encounter for general adult medical examination without abnormal findings (principal); N83.209 Unspecified ovarian cyst, unspecified side
CPT/HCPCS: 36415; 80053; 80061; 82043; 82570; 84402; 84403; 84439; 84443; 84481; 85025

== ENCOUNTER → 2024-10-29 13:42 | Outpatient (CLI) | payer BC, SELFPAY ==
[2024-10-29 14:24] LABS: Add Manual Diff / Slide Review NO; Basophils Absolute Auto 0 /uL (0-100); Basophils Percent Auto 0.4 % (0-2); Eosinophils Absolute Auto 200 /uL (0-450); Eosinophils Percent Auto 1.5 % (2-4); Hematocrit 41.4 % (36-46); Hemoglobin 14.1 g/dL (12.0-16.0); Lymphocytes Absolute Auto 1900 /uL (1100-4500); Mean Corpuscular HGB Conc 34.1 % (30-36); Mean Corpuscular Hemoglobin 31.3 PG (26-34); Mean Corpuscular Volume 91.7 fL (80-100); Monocytes Absolute Auto 500 /uL (0-900); Monocytes Percent Auto 4.4 % (3-14); Neutrophils Absolute Auto 8400 /uL (1500-7000); Neutrophils Percent Auto 76.7 % (50-75); Platelet Count 254 X10^3/uL (150-400); Red Blood Cell Count 4.51 X10^6/uL (4.0-5.2)
[2024-10-29 14:46] LABS: Natera Collection Specimen Collected
[2024-10-30 08:12] LABS: Varicella IgG Antibody Reactive (Non Reactive)
[2024-10-30 16:33] LABS: Hepatitis B Surface Antigen NEGATIVE s/c (NEGATIVE); Rubella Antibody IgG 9.3 IU/mL (>15)
[2024-10-30 16:50] LABS: HIV 1 & 2 Ab/Ag 4th Gen Combo NEGATIVE (NEGATIVE); Hep C Virus Ab w/Reflex Quant NEGATIVE s/c (NEGATIVE)
[2024-10-31 02:38] LABS: RPR Screen Non Reactive (Non Reactive)
== END ==
PROVIDERS: Family Provider Physician Assistant; PCP Family Medicine; Referring Provider Obstetrics & Gynecology; Visit Provider Obstetrics & Gynecology
DX: Z34.81 Encounter for supervision of other normal pregnancy, first trimester (principal); E28.2 Polycystic ovarian syndrome; E66.9 Obesity, unspecified; Z3A.10 10 weeks gestation of pregnancy
CPT/HCPCS: 36415; 80055; 83036; 86787; 86803; 86850; 86900; 86901; 87086; 87389

== ENCOUNTER → 2024-12-07 09:31 | Outpatient (CLI) | payer SELFPAY | LOC: LAB 09:33 | PROVIDERS: Family Provider Physician Assistant; PCP Family Medicine; Visit Provider Obstetrics & Gynecology | DX: N39.0 Urinary tract infection, site not specified (principal) | CPT/HCPCS: 87086 ==

== ENCOUNTER → 2025-01-04 14:35 | Outpatient (CLI) | payer OTHER, SELFPAY ==
--- NOTE | 2025-01-04 14:36 | DI.US.S_ITS ---
PROCEDURE: US OB >= 14 WEEKS FETUS INDICATIONS: 20 week anatomy scan OUTSIDE/PRIOR DATING DATA: The calculations are made using the working MONTSERRAT of 05/23/2025 TECHNIQUE: Real-time scanning was performed of the fetus, with image documentation and biometric measurements. Endovaginal scanning: Not performed COMPARISON: None. FINDINGS: General: A single living intrauterine gestation is present. Presentation: Vertex. Placenta: Placental position is posterior, without previa. Amniotic fluid index: 11 cm, normal range is 5-24 cm. Single deepest vertical pocket is 2.9 cm. heart rate: 153 beats per minute. Maternal cervical canal: Closed and measures 3.9 cm long. Normal lower limit is 2.5 cm. biometrics: Biparietal diameter: 4.8 cm, 20 weeks, 3 days. Head circumference: 17.5 cm, 20 weeks, 0 day. Abdominal circumference: 13.8 cm, 19 weeks, 1 day. Femur length: 3.1 cm, 19 weeks, 5 days. Clinically estimated gestational age: 20 weeks, 1 day Composite gestational age from present scan: 19 weeks, 6 days Estimated weight and percentile: 297 g, 16%. Anatomic survey: Neuro: Ventricles are non-dilated at less than 10 mm. Cisterna magna is normal at 3-11 mm. Cerebellum is normal in size and morphology. Nuchal skin fold: Normal at less than 6 mm between 14-21 weeks gestational age. Face: Nose and lips, facial profile are normal. Spine: No evidence for spina bifida. Heart: 4-chambered heart is present, with normal ventricular outflow tracts. Diaphragm: Diaphragm is intact. Stomach: Left-sided stomach is present. Kidneys: Mild pelviectasis is seen in bilateral kidneys. Normal is less than 5 mm in 2nd trimester, less than 7 mm in 3rd trimester. Cord: 3-vessel cord has orthotopic insertion. Bladder: Normal in size. Extremities: All 4 extremities identified. IMPRESSION: 1. Single live intrauterine gestation with fetus in vertex presentation. heart rate is 153 beats per minute. Normal MARIPOSA at 11 cm. Normal growth with estimated weight at 16%. 2. Mild bilateral renal pelviectasis. 3. Rest of the anatomic survey is normal. We strive to produce accurate, complete, and clear reports of imaging services. To assist us in improving patient care, this report was composed using standard report templates and voice recognition software. Therefore, it may contain abnormal punctuation, insertions and/or omissions. Occasional wrong-word or sound-alike substitutions may occur. Though we review the report and make efforts to correct it, we do recommend that the report be read carefully in proper context to recognize any text inaccuracies. Dictated by: Te Scott M.D. on 01/06/2025 at 22:30 Approved by: Te Scott M.D. on 01/06/2025 at 22:33
== END ==
LOC: US 14:36
PROVIDERS: Family Provider Physician Assistant; PCP Family Medicine; Referring Provider Family Medicine; Visit Provider Obstetrics & Gynecology
DX: Z34.92 Encounter for supervision of normal pregnancy, unspecified, second trimester (principal); Z3A.20 20 weeks gestation of pregnancy
CPT/HCPCS: 76811

== ENCOUNTER 2025-02-22 01:08 | Observation (INO) | payer OTHER, SELFPAY ==
[2025-02-22 03:29] LABS: Appearance Urine UA CLEAR; Bilirubin Urine UA NEGATIVE (NEGATIVE); Color Urine UA YELLOW; Glucose Urine UA NEGATIVE (Negative); Ketones Urine UA NEGATIVE (NEGATIVE); Leukocyte Esterase Urine UA NEGATIVE (NEGATIVE); Nitrite Urine UA NEGATIVE (Negative); Occult Blood Urine UA NEGATIVE (Negative); Protein Urine UA NEGATIVE (Negative); Specific Gravity Urine UA 1.010 (1.000-1.035); Urobilinogen Urine UA 0.2 E.U./dL (0.2)
[2025-02-22 03:30] LABS: pH Urine UA 6.5 (4.5-8.0)
[2025-02-22 03:36] LABS: Culture Indicated Urine Cult Not Indicated
--- NOTE | 2025-02-22 08:30 | PM.OBTRLD ---
Visit Information Visit Information Date of evaluation: 02/22/25 Primary OB Provider: Myrna Aguirre On-call OB Provider: Soanm Hernandez Reason for Evaluation: Yes pre-term labor Comments/Additional reasons for admission: This is a 34 yo at 27w0d here with contractions. She reports they started at 8pm on 02/21, woke her up from sleep and occured every few minutes. No LOF. Good movement. [facility] Medical History (Updated 02/10/25 @ 23:25 by Myrna Aguirre MD) Class 2 obesity due to excess calories with body mass index (BMI) of 39.0 to 39.9 in adult Difficulty concentrating Anal fissure Anal pain Elevated LFTs Elevated fasting glucose Dizziness Skin mole Skin tags, multiple acquired Umbilical mass Cellulitis Hemorrhoids Otitis externa Right otitis media Psoriasis Depression Biliary colic Neuritis Left foot pain Epigastric pain E coli infection (1998) Surgical History (Updated 10/13/24 @ 14:35 by Myrna Aguirre MD) History of section (12/06/16) [place] teeth removed History of hernia repair Hx of hemorrhoidectomy (12/29/20) History of laparoscopic cholecystectomy (05/15/19) Status post delivery (12/06/16) Status post repeat low transverse section Family History Mother Thyroid disorder Grandmother Thyroid disorder Grandmother Stroke Father Hypertension Social History (Updated 09/24/24 @ 10:04 by Kacey Gan RN) marital status: number of children: 2 household members: spouse and children lives independently: Yes caregiver/support person: No housing: house pets and animals: Yes (dogs, rabbits) education level: college (some college) 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) current occupational exposures/hazards: No special jose needs: No travel history: recent (Domestic only) seatbelt use: always helmet use: Yes water heater temp set < 120 deg: Yes working smoke detector in home: Yes fire extinguisher in home: Yes carbon monox detector in home: Yes firearms in home: Yes firearms unloaded and locked: Yes do you feel safe at home: Yes second hand exposure: No alcohol intake: never substance use type: does not use and marijuana (small amounts of edibles for migraines, not while /) during the past year weight has: remained stable well-balanced diet: daily or most days daily servings fruits/ve-4 caffeine: Yes (single cup coffee in AM) eating out: rarely or never Type(s) of exercise: occasional exercise Objective Labs Labs: Laboratory Results - last 24 hr 02/22/25 02:02 Urine Color Yellow Urine Appearance Clear Urine pH 6.5 Ur Specific [place] 1.010 Urine Protein Negative Urine Glucose (UA) Negative Urine Ketones Negative Urine Occult Blood Negative Urine Nitrate Negative Urine Bilirubin Negative Urine Urobilinogen 0.2 Ur Leukocyte Esterase Negative Urine RBC None seen Urine WBC 0-1/hpf Ur Squamous Epith Cells 10-30 /hpf H Amorphous Sediment 3+ Urine Bacteria Many (>30) H Ur Culture Indicated? Cult not indicated Vol Urine Centrifuged 10ml (spun) Evaluation Evaluation Baseline heart rate: 145 Variability: Moderate (6-25) monitor accelerations: Present Monitor Decelerations: Variable Contraction Frequency (minutes): 6 Uterine Contraction Intensity: Mild Category of Tracing: Reactive Status: Category l Cervical dilation (cm): 0 Cervical effacement (%): 0 station: -3 Diagnosis, Plan/Disposition Plan/Disposition Plan: This is a 34 yo at 27w0d here with contractions. Wet mount and UA unremarkable. Given 1L fluid bolus and hydroxyzine with minimal benefit. One dose nifedipine given with good response. NST reactive with a few variables that resolved with position changes. Contractions noted but spaced following fluid, hydroxyzine and nifedipine. Safe for discharge home. Strict return precautions given. OB Disposition: home
== END 2025-02-22 03:51 | disposition home or self-care (01) ==
LOC: LABOR 01:10
PROVIDERS: Admitting Provider Student in an Organized Health Care Education/Training Program; PCP Family Medicine; Referring Provider Family Medicine; Visit Provider Student in an Organized Health Care Education/Training Program
DX: O60.02 Preterm labor without delivery, second trimester (principal); Z3A.27 27 weeks gestation of pregnancy; Z3A.22 22 weeks gestation of pregnancy
CPT/HCPCS: 59025; 59050; 76815; 81001; 87210; 96360; G0378; A9270; G0379

== ENCOUNTER → 2025-02-22 11:18 | Outpatient (CLI) | payer OTHER, SELFPAY ==
--- NOTE | 2025-02-22 11:19 | DI.US.S_ITS ---
PROCEDURE: US OB LIMITED INDICATIONS: growth, kidneys/ureters OUTSIDE/PRIOR DATING DATA: Last menstrual period (LMP): 08/16/24 LMP-based estimated date of delivery (MONTSERRAT): 05/23/25. First dating scan (date and location): 10/12/24. Estimated date of delivery (MONTSERRAT) from first dating scan: 05/27/25. TECHNIQUE: Real-time scanning was performed of the fetus, with image documentation and biometric measurements. Endovaginal scanning: Not needed COMPARISON: [facility], OB <= 14 WEEKS FETUS, 10/12/2024, 15:20. [facility], OB >= 14 WEEKS FETUS, 02/19/2025, 9:40. [facility], OB >= 14 WEEKS FETUS, 01/04/2025, 14:47. FINDINGS: General: A single living intrauterine gestation is present. Presentation: Vertex. Placenta: Placental position is posterior , without previa. Amniotic fluid index: 15.4 cm, normal range is 5-24 cm. Single deepest vertical pocket is 4.6 cm. heart rate: 135 beats per minute. Maternal cervical canal: 3.8 cm long. Normal lower limit is 2.5 cm. biometrics: Biparietal diameter: 7.1 cm, 28 weeks 5 days Head circumference: 25.4 cm, 27 weeks 4 days Abdominal circumference: 22.4 cm, 26 weeks 6 days Femur length: 4.8 cm, 26 weeks 1 day Clinically estimated gestational age: 27 weeks 1 day Composite gestational age from present scan: 27 weeks 2 days Estimated weight and percentile: 974 g, 23rd percentile Other: Not applicable. IMPRESSION: Appropriate interval growth, normal amniotic fluid volume, estimated weight is within normal limits. Delivery date is projected to be centered on 05/23/25. We strive to produce accurate, complete, and clear reports of imaging services. To assist us in improving patient care, this report was composed using standard report templates and voice recognition software. Therefore, it may contain abnormal punctuation, insertions and/or omissions. Occasional wrong-word or sound-alike substitutions may occur. Though we review the report and make efforts to correct it, we do recommend that the report be read carefully in proper context to recognize any text inaccuracies. Dictated by: Manny Joe M.D. on 02/22/2025 at 14:19 Approved by: Manny Joe M.D. on 02/22/2025 at 14:23
== END ==
LOC: US 11:19
PROVIDERS: PCP Family Medicine; Referring Provider Obstetrics & Gynecology; Visit Provider Obstetrics & Gynecology
DX: Z34.82 Encounter for supervision of other normal pregnancy, second trimester (principal); Z3A.22 22 weeks gestation of pregnancy
CPT/HCPCS: 76815

== ENCOUNTER → 2025-04-02 10:55 | Outpatient (CLI) | payer OTHER, SELFPAY ==
[2025-04-02 11:50] LABS: Glucose Fasting Gestational 85 mg/dL (76-95)
[2025-04-02 13:17] LABS: Glucose 1 Hour Gest 184 mg/dL (76-180)
[2025-04-02 14:15] LABS: Glucose Tol Interp,Gestational INTERPRETATION
[2025-04-02 14:20] LABS: Glucose 2 Hour Gest 191 mg/dL (76-155)
[2025-04-02 15:25] LABS: Glucose 3 Hour Gest 162 mg/dL (76-140)
== END ==
PROVIDERS: PCP Family Medicine; Referring Provider Obstetrics & Gynecology; Visit Provider Obstetrics & Gynecology
DX: Z34.80 Encounter for supervision of other normal pregnancy, unspecified trimester (principal); R73.09 Other abnormal glucose
CPT/HCPCS: 36415; 82951; 82952

== ENCOUNTER → 2025-04-05 09:57 | Outpatient (CLI) | payer OTHER, SELFPAY ==
--- NOTE | 2025-04-05 10:49 | DIAB.GDA ---
Initial Gestational Diabetes Assessment Name: Kaylie Michaels Date: 04/05/25 Time: -3358p Dx: Gestational Diabetes Provider: Ike MONTSERRAT: 05/23/25 Weeks: 33 Kaylie presents for initial GDM visit, accompanied by Dionisio. H/o elevated glucola screens with previous pregnancies without elevated GTT. This 3/4 elevated GTT. In range FBG. Has not yet started SMBG. Plans to oyster picker supplies today. 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 Plans for c section. FH of DM with paternal grandparents. Reports misdiagnosis of PCOS in the past. Diet Recall: 830-9a: nothing or protein shake 11-12: 6 sandwich OR protein shake OR meal at work sn: nothing or cheezits or bagel with creamcheese or cashews 630-7p: 1c or less pasa with red sauce and emat, veggies OR meatloaf with veggies and 1/4c potatoes OR chx with dumplings OR Ramen 9p: ice cream OR chocolate OR popcorn water 16.9oz x 3-5 per day, sweet tea, soda, shelton water, lemonade Anthropometrics: Ht: 65 Wt: 228# 01/2025 Prepregnancy wt: 225# Physical Activity: No program currently, though active at work with walking. Self-Monitoring Blood Glucose: none yet, has rx for supplies. Date Pre Post Pre Post Pre Post HS Diabetes Medications: none Pertinent Labs: Screen: 183mg/dl OGTT: 85, 184, 191, 162 Nutrition Rx: Carbohydrates: Meal: 45-g lunch and dinner (max 60g); 30g breakfast Snack: 15-30g Nutrition Diagnosis: Altered nutrition related lab value r/t GDM dx aeb recent OGTT Predicted excessive CHO intake r/t nutrition knowledge deficit aeb diet recall with sugar beverages Physical inactivity r/t no current program aeb pt report Intervention: This participant was very receptive. Provided appropriate educational handouts. Discussed the following topics: GDM pathophysiology and impact of hyperglycemia on mom and baby Risk for T2DM for mom and baby in the future Plate Method, meal timing, carb counting, pairing macronutrients and spreading out CHO for better BG management Blood glucose goals (FBG: <95 and 1 hour <140 mg/dL or 2 hour <120mg/dl); importance of checking 4x per day (FBG and pc) Impact of macronutrients on blood glucose Recommended servings for carbohydrates at meals and snacks Brainstormed appropriate meal plan based on her food preferences SMBG technique and recommendations Role of physical activity and following provider guidelines for safety 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
== END ==
PROVIDERS: PCP Family Medicine; Referring Provider Obstetrics & Gynecology
DX: O24.419 Gestational diabetes mellitus in pregnancy, unspecified control (principal); Z3A.33 33 weeks gestation of pregnancy; Z71.3 Dietary counseling and surveillance
CPT/HCPCS: 97802

== ENCOUNTER → 2025-04-25 15:00 | Outpatient (CLI) | payer OTHER, SELFPAY ==
--- NOTE | 2025-04-25 15:01 | DIAB.GDFU ---
Follow-up Gestational Diabetes Assessment Name: Kaylie Michaels Date: 04/25/25 Time: 3-330p Dx: Gestational Diabetes Provider: Ike MONTSERRAT: 05/23/25 Weeks: 36 Kaylie presents for GDM visit virtually using Portal. Missed last visit and one reschedule. Cut out sweetened beverages. Adding more veggies. Avoiding sweets and replacing with fruit. Started Metformin 500mg BID since Tuesday at this dose. BG still often elevated, especially FBG. Sees OB tomorrow. She is interested in CGm if started in insulin. Planned csection 05/17 but may be moved to week sooner. Diet Recall: 830-9a: protein shake 11-12: sandwich on potato bread with PBJ banana and 1 mandarin orange sn: nothing 530-6p: 1c or less pasta with red sauce and protein, veggies OR 1.5 flour tortilla tacos with beans/corn/veggies 9p: 1 fruit water 16.9oz x 3-5 per day, sweet tea, soda, shelton water, lemonade Anthropometrics: Ht: 65 Wt: 231# 03/2025 228# 01/2025 Prepregnancy wt: 225# Self-Monitoring Blood Glucose: Checking FBG and 1 hour pc. 3/6 elevated FBG, 2/5 elevated pc breakfast, 2/4 elevated pc lunch, 5/5 elevated dinner. Date Pre Post Pre Post Pre Post HS 04/19 04/20 95 133 167 04/21 101 115 142 186 04/22 94 177 152 04/23 101 136 141 04/24 95 126 146 152 04/25 98 141 137 Diabetes Medications: 500mg Metformin BID Pertinent Labs: Screen: 183mg/dl OGTT: 85, 184, 191, 162 Nutrition Rx: Carbohydrates: Meal: 45-g lunch and dinner (max 60g); 30g breakfast Snack: 15-30g Nutrition Diagnosis: Altered nutrition related lab value r/t GDM dx aeb recent OGTT Predicted excessive CHO intake r/t nutrition knowledge deficit aeb diet recall with sugar beverages- improved/in progress Physical inactivity r/t no current program aeb pt report - not discussed Intervention: This participant was very receptive. Provided appropriate educational handouts. 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
== END ==
LOC: DIET 15:01
PROVIDERS: PCP Family Medicine; Referring Provider Obstetrics & Gynecology
DX: O24.415 Gestational diabetes mellitus in pregnancy, controlled by oral hypoglycemic drugs (principal); Z3A.36 36 weeks gestation of pregnancy; Z71.3 Dietary counseling and surveillance
CPT/HCPCS: 97803

== ENCOUNTER → 2025-04-26 15:57 | Outpatient (CLI) | payer OTHER, SELFPAY ==
[2025-04-27 15:23] LABS: Strep Grp B PCR NEG for Grp B Strep
== END ==
LOC: LAB 15:59
PROVIDERS: PCP Family Medicine; Visit Provider Obstetrics & Gynecology
DX: Z3A.36 36 weeks gestation of pregnancy (principal)
CPT/HCPCS: 87653

== ENCOUNTER 2025-04-27 11:02 | Outpatient (CLI) | payer OTHER, SELFPAY ==
--- NOTE | 2025-04-27 11:07 | DI.US.S_ITS ---
PROCEDURE: US OB LIMITED INDICATIONS: growth and BPP OUTSIDE/PRIOR DATING DATA: Last menstrual period (LMP): 08/16/2024. LMP-based estimated date of delivery (MONTSERRAT): 05/23/2025. The calculations are made using the LMP MONTSERRAT of 05/23/2025 TECHNIQUE: Real-time scanning was performed of the fetus, with image documentation. Endovaginal scanning: Was not performed COMPARISON: [facility], OB LIMITED, 02/22/2025, 11:26. FINDINGS: A single living intrauterine gestation is present. Presentation: Vertex. Placenta: Placental position is posterior, without previa. Amniotic fluid index: 15.5 cm, normal range is 5-24 cm. Single deepest vertical pocket is 5.9 cm. heart rate: 144 beats per minute. Maternal cervical canal: Not measured Clinically estimated gestational age: 35 weeks 6 days Estimated gestational age from initial scan: 36 weeks 2 days IMPRESSION: Live intrauterine with estimated weight at the 48th percentile and normal biophysical profile score Dictated by: Reymundo Loo M.D. on 04/27/2025 at 12:05 Approved by: Reymundo Loo M.D. on 04/27/2025 at 12:08
--- NOTE | 2025-04-27 13:57 | PM.OBTRLD ---
Visit Information Visit Information Date of evaluation: 04/27/25 Primary OB Provider: Karen Ramires On-call OB Provider: Karen Ramires Reason for Evaluation: Yes non-stress test Comments/Additional reasons for admission: Amauri martinez a 35yo @ 36w3d presents to L&D for scheduled antenalata testing and growth US. Patient has no complaints. reports good movement. testing weekly due to GDMA2. currently on metformin 500mg qam + 1000mcg qhs. [facility] Medical History (Updated 04/10/25 @ 10:47 by Karen Ramires DO) Class 2 obesity due to excess calories with body mass index (BMI) of 39.0 to 39.9 in adult Difficulty concentrating Anal fissure Anal pain Elevated LFTs Elevated fasting glucose Dizziness Skin mole Skin tags, multiple acquired Umbilical mass Cellulitis Hemorrhoids Otitis externa Right otitis media Psoriasis Depression Biliary colic Neuritis Left foot pain Epigastric pain E coli infection (1998) Surgical History (Updated 10/13/24 @ 14:35 by Myrna Aguirre MD) History of section (12/06/16) [place] teeth removed History of hernia repair Hx of hemorrhoidectomy (12/29/20) History of laparoscopic cholecystectomy (05/15/19) Status post delivery (12/06/16) Status post repeat low transverse section Family History Mother Thyroid disorder Grandmother Thyroid disorder Grandmother Stroke Father Hypertension Social History (Updated 09/24/24 @ 10:04 by Kacey Gan RN) marital status: number of children: 2 household members: spouse and children lives independently: Yes caregiver/support person: No housing: house pets and animals: Yes (dogs, rabbits) education level: college (some college) 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) current occupational exposures/hazards: No special jose needs: No travel history: recent (Domestic only) seatbelt use: always helmet use: Yes water heater temp set < 120 deg: Yes working smoke detector in home: Yes fire extinguisher in home: Yes carbon monox detector in home: Yes firearms in home: Yes firearms unloaded and locked: Yes do you feel safe at home: Yes second hand exposure: No alcohol intake: never substance use type: does not use and marijuana (small amounts of edibles for migraines, not while /) during the past year weight has: remained stable well-balanced diet: daily or most days daily servings fruits/ve-4 caffeine: Yes (single cup coffee in AM) eating out: rarely or never Type(s) of exercise: occasional exercise Exam Vital Signs (past 8 hours): BP normotensive vital signs appropriate Evaluation Evaluation Baseline heart rate: 145 Variability: Moderate (6-25) monitor accelerations: Present Monitor Decelerations: Absent Contraction Frequency (minutes): 15 Uterine Contraction Intensity: Mild Category of Tracing: Reactive Status: Category l Diagnosis, Plan/Disposition Plan/Disposition Plan: Patient is a 35yo @ 36w3d presents for scheduled testing and growth US. 1. GDMA2- on metformin - BG overall well controlled- recent increase of metformin dose - Growth US today- vertex, normal fluid, posterior placenta, EFW_ 48%, BPP- 8/8 2. testing - Reactive NST, BPP- 8/8 - reassuring status dispo- discharge home, folow up in 1wk for testing and visit repeat scheduled 05/10 OB Disposition: home
== END 2025-04-27 12:10 | disposition home or self-care (01) ==
LOC: OB 04-29 09:44
PROVIDERS: PCP Family Medicine; Referring Provider Obstetrics & Gynecology; Visit Provider Obstetrics & Gynecology
DX: O24.415 Gestational diabetes mellitus in pregnancy, controlled by oral hypoglycemic drugs (principal); Z3A.36 36 weeks gestation of pregnancy
CPT/HCPCS: 59025; 76815; 76819; G0378; G0379

== ENCOUNTER 2025-05-03 10:10 | Inpatient (IN) | payer OTHER, SELFPAY ==
--- NOTE | 2025-05-03 11:28 | DI.US.S_ITS ---
PROCEDURE: US OB BIOPHYSICAL PROFILE INDICATIONS: non reactive NST OUTSIDE/PRIOR DATING DATA: Last menstrual period (LMP): 08/16/24 LMP-based estimated date of delivery (MONTSERRAT): 05/23/25. TECHNIQUE: Real-time scanning was performed of the fetus for biophysical profile, with image documentation. Color and pulse Doppler interrogation was also performed of the umbilical artery near its insertion into the placenta. Endovaginal scanning: Not needed COMPARISON: [facility], , OB LIMITED, 04/27/2025, 11:50. [facility], , US OB >= 14 WEEKS FETUS, 03/20/2025, 11:50. Prior OB ultrasound studies for this .. FINDINGS: General: A single living intrauterine gestation is present. Presentation: Vertex. Placenta: Placental position is posterior , without previa. heart rate: 131 beats per minute. Maternal cervical canal: Not well seen due to positioning. Clinically estimated gestational age: 37 weeks 1 day Biophysical profile: Tone: 2 points. Movement: 2 points. Respiration: 2 points. Largest pocket of fluid: To points. IMPRESSION: Single living intrauterine gestation with normal biophysical profile score of 8 of 8 possible points. We strive to produce accurate, complete, and clear reports of imaging services. To assist us in improving patient care, this report was composed using standard report templates and voice recognition software. Therefore, it may contain abnormal punctuation, insertions and/or omissions. Occasional wrong-word or sound-alike substitutions may occur. Though we review the report and make efforts to correct it, we do recommend that the report be read carefully in proper context to recognize any text inaccuracies. Dictated by: Manny Joe M.D. on 05/03/2025 at 13:05 Approved by: Manny Joe M.D. on 05/03/2025 at 13:09
[2025-05-03] MEDS: LACTATED RINGERS 1,000 ML 999 ML IV (13:35)
[2025-05-03 14:33] LABS: Add Manual Diff / Slide Review NO; Hematocrit 35.6 % (36-46); Hemoglobin 12.1 g/dL (12.0-16.0); Lymphocytes Absolute Auto 2100 /uL (1100-4500); Mean Corpuscular HGB Conc 34.0 % (30-36); Mean Corpuscular Hemoglobin 31.2 PG (26-34); Mean Corpuscular Volume 91.7 fL (80-100); Platelet Count 253 X10^3/uL (150-400)
[2025-05-03] MEDS: AZITHROMYCIN 500 MG in DEXTROSE 5% IN WATER 250 ML 250 MG IV (15:25)
--- NOTE | 2025-05-03 15:33 | SUR.OPER ---
Supine on padded OR bed, head on pillow, arms secured on padded arm boards at <90 degrees abduction, legs uncrossed, safety belt at thigh, bump to right hip, tape over blanket over lower legs.
[2025-05-03] MEDS: ACETAMINOPHEN IV 1,000 MG/100 ML VIAL 400 MG IV (16:09)
[2025-05-03 16:21] VITALS: BP 118/67; PULSE 67; RESP 16; TEMP 36.2; O2SAT 98
[2025-05-03 16:25] VITALS: BP 118/65; PULSE 68; RESP 11; O2SAT 99
--- NOTE | 2025-05-03 16:25 | P.OP_ITS ---
Operative Date/Time/Diagnoses Date of procedure: 05/03/25 Time of procedure: 15:30 Pre-op diagnosis: IUP @ 37wks Previous section x 1, declines tolact active labor Post-op diagnosis: same Procedure & Clinicians Procedure: Repeat Low Transverse section Same procedure(s) as scheduled: Yes Indications: IUP @ 37wks Active labor Previous x 1, declines TOLAC Surgeon: Karen Ramires Assisted?: Yes Project Officer: Paul Rocha Anesthesia Type: Spinal Operative Notes Findings: viable male , apgars 9/9, delivered at 1540, nuchal cord x 2, normal 3VC intact placenta, normal tubes and ovaries bilaterally Closure Type: primary Specimen(s): none sent Applied: none Estimated Blood Loss (mL): 200 Blood products transfused: none Procedure in detail: The patient services assistant was necessary to retract upon entry into the abdomen and uterus. He assisted with delivery of the with fundal pressure. He assisted with closure with retraction, clipping of suture, and closure of the fascia. Under Spinal anaesthetic with a perea catheter inserted, the patient was prepped and draped in the usual sterile fashion in the supine position with a leftward tilt. A Pfannenstiel skin incision was made. The incision was carried down to the fascia with sharp dissection and cautery. The fascia was incised transversely and dissected off the rectus muscle using blunt and sharp dis section. Electrocautery was used for hemostasis. The peritoneum was opened taking care not to injure the bladder. The vesicouterine peritoneum was dissected off the lower uterine segment. The lower segment was assessed and a low transverse incision was made. The uterine incision was extended bluntly in cephalocaudad direction. The fetus was presenting as vertex. The head was delivered without difficulty and the rest of the body followed easily. After one minute of delayed cord clamping, the cord was clamped twice and cut and the baby transferred to the warmer, awaiting the nursing staff. Cord gases were then obtained. The placenta was then delivered spontaneously with assistance. The uterus was explored and cleared of all clots and debris. The uterine incision was then closed in 2 layers. The first layer was locking and the second was imbricating. 0-vicryl was used for the first layer and second layer. Tubes and ovaries were examined and appeared normal. The peritoneal and rectus layer was approximated with 2-0 vicryl with interrupted stitches. The fascia was closed using 0- vicryl in a running unlocked fashion. The subcutaneous adipose was approximated with 2-0 Chromic with interrupted stitches. The skin was then re approximated with a running monocryl subcuticular suture. At the end of the procedure all sponges, instruments, and sharps were counted and correct. Estimated blood loss was 200 ml. The patient and baby were taken to the recovery in stable condition. Complications: none Post-operative Condition: stable Disposition: PACU Plan for aftercare: Patient will go to unit for care and monitoring/pain control. Will check glucose levels x 4 after delivery and discontinue if within normal range.
--- NOTE | 2025-05-03 16:32 | PM.OBHP.IH.1 ---
OB HPI Date/Time Date of admission: 05/03/25 Date Patient Seen: 05/03/25 Time Patient Seen: 13:00 History of Present Condition Chief complaint: NST MONTSERRAT Calculator Estimated Delivery Date Method Current WG Current Estimate 05/23/25 LMP (Certain) 37w 1d Other Estimates 05/27/25 Ultrasound #1 36w 4d Estimated Gestational Age (weeks): 37w1d : 3 Para: 2 Narrative: Patient is a 35yo @ 37w1d presents to L&D for testing with NST due to gestational diabetes managed with oral metformin. Patient noted some contractions during the day today but while being on L&D reports worsening and more frequent contractions. denies LOF/VB and reports good movement. care: good care Dating criteria OB: LMP confirmed by 1st trimester US Ultrasounds: normal mid trimester US Obstetrical complications: gestational diabetes (GDMA2 on metformin) Medical complications OB: none Indications Indication for induction OB: gestational diabetes Operative indications ( section): previous uterine surgery Preadmission Labs Last OB Lab Results: Blood Type O Positive Today, 13:40 Antibody Screen Negative Today, 13:40 Hct, (36-46) 35.6 % L Today, 13:40 Hgb, (12.0-16.0) 12.1 g/dL Today, 13:40 Hep Bs Antigen, (NEGATIVE) Negative s/c 10/29/24, 13:46 Hepatitis C Antibody, (NEGATIVE) Negative s/c 10/29/24, 13:46 Rubella Antibody, (>15) 9.3 IU/mL L 10/29/24, 13:46 VZV IgG Antibody, (Non Reactive) Reactive 10/29/24, 13:46 Glucose 1 Hr 50 gm, (76-139) 183 mg/dL H 03/14/25, 11:28 Hemoglobin A1c, (4.0-6.0) 5.0 % 10/29/24, 13:46 Group B Strep (PCR) Neg for grp b strep 04/26/25, 15:57 Prior (ies) Past Pregnancies Del. Date GA/Weeks Labor Lgth Wt Sex Route Outcome Anesthesia Place Delv Breastfeed Preg Comp Name 04/10/14 40+ 8 7 lb 8 oz Female vaginal live - full term epidural IH 13 months [place] 12/06/16 ~38 12 9 lb Female live - full term epidural IH 11 months [place] Delivery Date: 12/06/16 Last Updated by: Kacey Gan RN sciatica starting ~8-12 weeks Hx # Term Pregnancies: 3 Number of Living Children: 2 Evaluation Evaluation Baseline heart rate: 145 Variability: Moderate (6-25) monitor accelerations: Present Monitor Decelerations: Absent Contraction Frequency (minutes): 3 Uterine Contraction Intensity: Moderate Category of Tracing: Reactive Status: Category l Dilation (cm): 3 Effacement (%): 50 Dilation: 3-4 cm Effacement: 40-50% station: -3 Position of cervix: mid Consistency: medium Burris score: 5 [facility] Medical History (Updated 04/10/25 @ 10:47 by Karen Ramires DO) Class 2 obesity due to excess calories with body mass index (BMI) of 39.0 to 39.9 in adult Difficulty concentrating Anal fissure Anal pain Elevated LFTs Elevated fasting glucose Dizziness Skin mole Skin tags, multiple acquired Umbilical mass Cellulitis Hemorrhoids Otitis externa Right otitis media Psoriasis Depression Biliary colic Neuritis Left foot pain Epigastric pain E coli infection (1998) Surgical History (Updated 10/13/24 @ 14:35 by Myrna Aguirre MD) History of section (12/06/16) [place] teeth removed History of hernia repair Hx of hemorrhoidectomy (12/29/20) History of laparoscopic cholecystectomy (05/15/19) Status post delivery (12/06/16) Status post repeat low transverse section Family History Mother Thyroid disorder Grandmother Thyroid disorder Grandmother Stroke Father Hypertension Social History (Updated 09/24/24 @ 10:04 by Kacey Gan RN) marital status: number of children: 2 household members: spouse and children lives independently: Yes caregiver/support person: No housing: house pets and animals: Yes (dogs, rabbits) education level: college (some college) 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) current occupational exposures/hazards: No special jose needs: No travel history: recent (Domestic only) seatbelt use: always helmet use: Yes water heater temp set < 120 deg: Yes working smoke detector in home: Yes fire extinguisher in home: Yes carbon monox detector in home: Yes firearms in home: Yes firearms unloaded and locked: Yes do you feel safe at home: Yes second hand exposure: No alcohol intake: never substance use type: does not use and marijuana (small amounts of edibles for migraines, not while /) during the past year weight has: remained stable well-balanced diet: daily or most days daily servings fruits/ve-4 caffeine: Yes (single cup coffee in AM) eating out: rarely or never Type(s) of exercise: occasional exercise Meds Home Medications and Allergies Home Medications ?Medication ?Instructions ?Recorded ?Confirmed ?Type fluoxetine 20 mg capsule See Rx Instructions .Route 07/26/24 05/03/25 Rx .COMPLEX #90 caps vitamins with calcium 1 tab PO DAILY #90 tabs 07/26/24 05/03/25 Rx no.72-iron 29 mg-folic acid 1 mg tablet methylphenidate HCl 36 mg 36 mg PO DAILY #30 tabs 08/10/24 05/03/25 Rx tablet,extended release 24 hr methylphenidate HCl 36 mg 36 mg PO DAILY #30 tabs 08/10/24 05/03/25 Rx tablet,extended release 24 hr methylphenidate HCl 36 mg 36 mg PO QAM #30 tabs 08/10/24 05/03/25 Rx tablet,extended release 24 hr RSV Vaccine 1 dose IM ONCE #1 dose 03/20/25 05/03/25 Rx blood sugar diagnostic (Blood #100 ea 04/03/25 05/03/25 Rx Glucose Test strips) blood-glucose meter (Blood Glucose #1 ea 04/03/25 05/03/25 Rx Monitoring kit) lancets #100 ea 04/03/25 05/03/25 Rx metformin 500 mg tablet 500 mg PO .qhs 90 days #90 tabs 04/10/25 05/03/25 Rx Allergies Allergy/AdvReac Type Severity Reaction Status Date / Time citalopram AdvReac Intermediate Memory Verified 05/03/25 09:36 loss, hot flashes OB Exam Narrative Exam Narrative: Vital signs within expected values General- AAO x3, NAD abdomen- palpable contractions - 3/50/-3, cephalic Objective Labs 05/03/25 13:40 Labs: Laboratory Results - last 24 hr 05/03/25 05/03/2505/03/25 13:40 14:27 16:25 WBC 11.4 H RBC 3.88 L Hgb 12.1 Hct 35.6 L MCV 91.7 MCH 31.2 MCHC 34.0 RDW 14.0 Plt Count 253 Neut % (Auto) 74.9 Lymph % (Auto) 18.3 L [place] % (Auto) 5.7 Eos % (Auto) 0.6 L Baso % (Auto) 0.5 Neut # (Auto) 8600 H Lymph # (Auto) 2100 [place] # (Auto) 600 Eos # (Auto) 100 Baso # (Auto) 100 POC Whole Bld Glucose 61 L 87 Blood Type O Positive Antibody Screen Negative Assessment and Plan Assessment and Plan Assessment and Plan narrative: Patient is a 35yo @ 37w1d in active labor at term. 1. Previous in active labor- declines TOALC - admit to L&D - CEFM, IVF, NPO - reviewed risks of section including bleeding, pain, infection, injury to surrounding organs/tissues including bladder, bowel, ureters.-- all questions answered, consent signed - anesthesia and OR aware - IVF ancef and aithromycin ordered to be given prior to start of surgery - will proceed to the OR when ready 2. GDMA2 - 0n metformin during - stop meds, will monitor glucose x 4 checks , if normal can discontinue - needs 2hr GTT at 6wk PP visit Time-Based Coding :: [TOTAL MINUTES] spent with patient and on the chart (including review of chart, obtaining history, exam, reviewing outside data, placing orders, documenting exam and treatment plan, and counseling patient) on [DATE].
[2025-05-03 16:33] VITALS: BP 115/71; PULSE 68; RESP 16; O2SAT 98
[2025-05-03] MEDS: KETOROLAC 30 MG/ML VIAL IV (21:48)
[2025-05-03] MEDS: ACETAMINOPHEN 325 MG TABLET 650 MG PO (21:48)
[2025-05-04] MEDS: ACETAMINOPHEN 325 MG TABLET 650 MG PO ×4 (03:45→21:15)
[2025-05-04] MEDS: KETOROLAC 30 MG/ML VIAL IV ×2 (03:46→10:00)
[2025-05-04 07:55] VITALS: BP 145/65
[2025-05-04] MEDS: PRENATAL VIT,CALC/IRON/FOLIC 1 TABLET 1 TAB PO (08:46)
[2025-05-04 08:59] LABS: Add Manual Diff / Slide Review NO; Hematocrit 30.0 % (36-46); Hemoglobin 10.5 g/dL (12.0-16.0); Lymphocytes Absolute Auto 2200 /uL (1100-4500); Mean Corpuscular HGB Conc 35.1 % (30-36); Mean Corpuscular Hemoglobin 32.1 PG (26-34); Mean Corpuscular Volume 91.4 fL (80-100); Platelet Count 228 X10^3/uL (150-400)
--- NOTE | 2025-05-04 09:02 | PM.OBPN.1 ---
Subjective - OB Subjective Patient comments: pain well controlled [place] baby status: doing well feeding status: exclusively breast feeding Date Patient Seen: 05/04/25 Time Patient Seen: 12:50 Interval history: Patient reports she is doing well postoperatively. She has been up and moving around well today. She is working on with her baby. He seems very tired and does not want allowed for long periods of time. Her bleeding is scant. She has been able to void without difficulty. Exam Vital Signs (past 8 hours): - 05/04/25 07:55 Blood Pressure 145/65 H Oxygen Delivery Method Room Air Glucose POC: 86 Const General: cooperative, comfortable and well groomed Orientation: alert, awake and oriented x3 HENMT Head: normal to inspection Resp Effort & Inspection: normal respiratory effort Cardio Rate: regular rate Rhythm: regular rhythm GI Inspection: non-distended Palpation: soft, No guarding and No rigid Skin Other: Dressing in place. Dressing is clean and dry. Dressing will be removed in the shower this afternoon. Neuro General: patient alert, patient awake and patient oriented x3 Extrem General: normal to inspection and no clubbing, cyanosis or edema Psych Appearance: grossly normal Objective Labs 05/04/25 08:47 Labs: Laboratory Results - last 24 hr 05/03/25 05/03/25 05/03/25 13:40 14:27 16:25 WBC 11.4 H RBC 3.88 L Hgb 12.1 Hct 35.6 L MCV 91.7 MCH 31.2 MCHC 34.0 RDW 14.0 Plt Count 253 Neut % (Auto) 74.9 Lymph % (Auto) 18.3 L [place] % (Auto) 5.7 Eos % (Auto) 0.6 L Baso % (Auto) 0.5 Neut # (Auto) 8600 H Lymph # (Auto) 2100 [place] # (Auto) 600 Eos # (Auto) 100 Baso # (Auto) 100 POC Whole Bld Glucose 61 L 87 Blood Type O Positive Antibody Screen Negative 05/03/25 05/04/25 05/04/25 23:25 05:02 08:47 WBC 15.6 H RBC 3.28 L Hgb 10.5 L Hct 30.0 L MCV 91.4 MCH 32.1 MCHC 35.1 RDW 13.7 Plt Count 228 Neut % (Auto) 77.1 H Lymph % (Auto) 13.9 L [place] % (Auto) 8.4 Eos % (Auto) 0.1 L Baso % (Auto) 0.5 Neut # (Auto) 28674 H Lymph # (Auto) 2200 [place] # (Auto) 1300 H Eos # (Auto) 0 Baso # (Auto) 100 POC Whole Bld Glucose 207 H D 96 D Blood Type Antibody Screen Assessment & Plan Plan day: 1 plan OB: routine postop care Comments: GDMA2 Point of care glucose within range . No further testing is necessary at this time for GDM. We will plan 2 hour GTT 6-12 weeks . Rx sent today. Discussed option of late discharge today which she may consider.
[2025-05-04] MEDS: IBUPROFEN 600 MG TABLET PO ×2 (15:38→21:15)
[2025-05-04] MEDS: LANOLIN OINT 7 GM 1 APPLIC TOP (21:15)
[2025-05-05] MEDS: ACETAMINOPHEN 325 MG TABLET 650 MG PO ×2 (03:30→09:17)
[2025-05-05] MEDS: IBUPROFEN 600 MG TABLET PO ×2 (03:30→09:17)
--- NOTE | 2025-05-05 09:15 | P.DS_ITS ---
Discharge Providers Provider Date of admission: 05/03/25 10:10 Discharge Date: 05/05/25 Primary care physician: Calderon Piña MD Consults: 05/03/25 16:21 Consult to Hair Salon Manager Routine Comment: Discharge provider: Cat Gabriel DO Summary Hospital Course Date Patient Seen: 05/05/25 Time Patient Seen: 09:29 Diagnoses: S/p section Hospital Course: The patient presented on 05/03/2025 in labor, with history of prior declining TOLAC. She was taken for repeat section. Delivery was uncomplicated. , the patient did well. She was tolerating a regular diet without nausea or vomiting. Her had been complicated by gestational diabetes controlled on metformin. Metformin was discontinued following delivery. Her point of care glucose was 86. Her hemoglobin was stable and her bleeding was scant. Her vital signs were within normal limits. She had been ambulating without dizziness. Her pain was controlled on p.o. pain medications. She was successfully. She was stable and ready for discharge on day 2. Peripartum Data Delivery Method: Section [place] Description: None complications: none [place] 1: Gender: Male Disposition of : home Discharge Diagnosis (1) Status post delivery: Status: Acute Problem Details: Routine postop instructions given. (2) Gestational diabetes mellitus (GDM) controlled on oral hypoglycemic drug: Status: Acute Problem Details: Discontinue metformin. No need to check point of care glucose for now. Plan for 2 hour glucose challenge 6-12 weeks Status at Discharge Cognitive/behavioral status at discharge: oriented Functional status at discharge: independent ambulation Time Spent with Patient Time attestation: Total time spent providing and/or coordinating discharge services: Time spent: Less than 30 minutes Objective Labs 05/04/25 08:47 Labs: Laboratory Results - last 24 hr 05/04/25 10:06 POC Whole Bld Glucose 86 Exam Vital Signs (past 8 hours): Oxygen Delivery Method Room Air 128/82, pulse 62, RR:16, 97.2, 98% room air Glucose POC: 86 Const General: cooperative and comfortable Orientation: alert and awake HENMT Head: normocephalic and atraumatic Resp Effort & Inspection: normal respiratory effort Auscultation: clear to auscultation bilaterally Cardio Rate: regular rate Rhythm: regular rhythm GI Inspection: non-distended and other (fundus firm below the umbilicus) Palpation: soft Auscultation: normal bowel sounds Back/Spine/Pelvis Back: normal to inspection Skin Lesions: no lesions Rashes: no rashes Other: site is clean, dry, and intact. There is no erythema. Neuro General: patient oriented x3 Extrem General: normal to inspection and no clubbing, cyanosis or edema Psych Appearance: grossly normal Discharge Plan Discharge Plan Patient Disposition: Home Discharge orders & Medications Prescriptions: New ibuprofen 600 mg tablet 600 mg PO Q6H PRN (Reason: mild pain) Qty: 60 0RF docusate sodium [Colace] 100 mg capsule 100 mg PO BID Qty: 60 0RF oxycodone 5 mg tablet 5 mg PO Q4-6H MDD 6 tabs PRN (Reason: pain) Qty: 25 0RF Continued methylphenidate HCl 36 mg tablet extended release 24hr 36 mg PO QAM Qty: 30 0RF methylphenidate HCl 36 mg tablet extended release 24hr 36 mg PO DAILY Qty: 30 0RF methylphenidate HCl 36 mg tablet extended release 24hr 36 mg PO DAILY Qty: 30 0RF fluoxetine 20 mg capsule See Rx Instructions .ROUTE .COMPLEX Qty: 90 3RF Dose Instruction: TAKE ONE CAPSULE BY MOUTH EVERY MORNING Rx Instructions: TAKE ONE CAPSULE BY MOUTH EVERY MORNING PNV,calcium 72-iron,carb-folic 29 mg iron- 1 mg tablet 1 tab PO DAILY Qty: 90 3RF Rx Instructions: Take 1 tab by mouth daily for desired RSV Vaccine 1 dose IM ONCE Qty: 1 0RF Rx Instructions: Administer vaccination to patient Discontinued (DME) blood-glucose meter [Blood Glucose Monitoring] Kit See Rx Instructions .ROUTE .MEDSUPPLY Qty: 1 0RF Rx Instructions: check am fasting blood sugar, and 2 hours after breakfast, lunch and dinner. (DME) Blood Glucose Test Strip See Rx Instructions .ROUTE .MEDSUPPLY Qty: 100 3RF Rx Instructions: Please check am fasting BS, and 2 hours after breakfast/lunch/dinner (DME) lancets Misc See Rx Instructions .ROUTE .MEDSUPPLY Qty: 100 3RF Rx Instructions: please chk AM fasting blood sugar, and 2 hour after brkfst, lunch and dinner metformin 500 mg tablet 500 mg PO .qhs 90 Days Qty: 90 3RF Follow up/Referrals: Calderon Piña MD [Primary Care Provider, Family Practice] Discharge Health Status Multidrug resistant organism: No MDRO Diet/Activity/Treatments Diet: Diet as Tolerated Activity: As tolerated. Nothing in the vagina for 6 weeks. Do not use tampons. No intercourse. No lifting anything heavier than the baby for 6 weeks. Cold/Heat Therapy: hotpacks and cold packs OK Skin/Wound/Dressing Care Skin care: Keep incision clean and dry. Report to your healthcare provider any signs of infection, such as:: chills, fever, increased pain, unusual drainage and unusual redness Dressing: Open to air. Visit Report/Discharge Packet Stand Alone Forms: Patient Portal/API, Stroke Signs & Symptoms Discharge Data Primary Care Provider: Calderon Piña Attending Provider: Karen Ramires [place]ruben Date/Time: 05/03/25 10:10
[2025-05-05] MEDS: PRENATAL VIT,CALC/IRON/FOLIC 1 TABLET 1 TAB PO (09:17)
[2025-05-05 11:02] VITALS: BP 115/83; PULSE 75; RESP 16; TEMP 36.1
== END 2025-05-05 10:50 | disposition home or self-care (01) | DRG 788 ==
PROVIDERS: Admitting Provider Obstetrics & Gynecology; PCP Family Medicine; Referring Provider Obstetrics & Gynecology; Visit Provider Obstetrics & Gynecology
PROC: 10D00Z1 Extraction of Products of Conception, Low, Open Approach (ICD-10-PCS; CPT 59514; principal; 2025-05-03 15:00)
DX: O34.211 Maternal care for low transverse scar from previous cesarean delivery (principal); O24.425 Gestational diabetes mellitus in childbirth, controlled by oral hypoglycemic drugs; Z3A.37 37 weeks gestation of pregnancy; Z37.0 Single live birth; Z67.40 Type O blood, Rh positive
CPT/HCPCS: 36415; 59050; 76819; 82962; 85025; 86850; 86900; 86901; G0378; G0379; J0131; J0689; J1100; J1885; J2274; J2405; J7060; J7120